=== PATIENT | female | born 1935 | race Caucasian/White ===

== ENCOUNTER 2020-09-01 14:07 | Inpatient (IN) | payer MEDICARE ==
[~2020-09-01] VITALS: Ht 157.5 cm; Wt 55.0 kg
[2020-09-01] MEDS ORDERED: NAPR1TAB25 PO (15:08)
[2020-09-01] MEDS ORDERED: ESCITALOPRAM OX10 MG PO (15:08)
[2020-09-01] MEDS ORDERED: ACET500T68 PO (15:08)
[2020-09-01] MEDS ORDERED: MELA3TAB43 PO (15:08)
[2020-09-01] MEDS ORDERED: QUET100T4 PO (15:08)
[2020-09-01 15:54] VITALS: BP 144/73
[2020-09-01] MEDS ORDERED: ACETAMINOPHEN 500 MG TABLET PO PRN (16:30)
[2020-09-01 16:37] LABS: BASO % 1 % (0-3); EOS # 0.4 x10^3/uL (0.0-0.7); EOS % 7 % (0-3); HEMATOCRIT 46.5 % (36.0-47.0); HEMOGLOBIN 15.2 g/dL (12.0-15.5); LYMPH # 1.1 x10^3/uL (1.0-4.8); LYMPH % 20 % (24-48); MEAN CORPUSCULAR HEMOGLOBIN 31 pg (25-35); MEAN CORPUSCULAR HGB CONC 33 g/dL (31-37); MEAN CORPUSCULAR VOLUME 95 fL (79-100); MONO # 0.6 x10^3/uL (0.0-1.1); MONO % 11 % (0-9); NEUT # 3.3 x10^3uL (1.8-7.7); NEUT % 61 % (31-73); PLATELET COUNT 265 x10^3/uL (140-400); RED BLOOD COUNT 4.92 x10^6/uL (3.50-5.40); WHITE BLOOD COUNT 5.4 x10^3/uL (4.0-11.0)
[2020-09-01 16:49] LABS: ALBUMIN 3.8 g/dL (3.4-5.0); ALBUMIN/GLOBULIN RATIO 0.9 (1.0-1.7); CREATININE 0.8 mg/dL (0.6-1.0); POTASSIUM 3.8 mmol/L (3.5-5.1); TOTAL BILIRUBIN 0.4 mg/dL (0.2-1.0); TOTAL PROTEIN 7.9 g/dL (6.4-8.2)
[2020-09-01 20:01] VITALS: BP 155/95
[2020-09-01] MEDS ORDERED: MELATONIN 3 MG TABLET PO SCH (21:00)
[2020-09-01] MEDS ORDERED: QUEtiapine 100 MG TABLET. PO SCH (21:00)
--- NOTE | 2020-09-01 21:59 | EKG ---
[address] [address] Test Date: 2020-09-01 Test Time: 21:51:46 Pat Name: YODIT ANDERSON Department: Room: [facility] A Gender: F Signals Analyst: : 1935 Requested By: FUNMILAYO HARP Order Number: [id number] Reading MD: Measurements Intervals [place] Rate: 74 P: 9 CT: 172 QRS: 3 QRSD: 78 T: 26 QT: 410 QTc: 456 Interpretive Statements SINUS RHYTHM ATRIAL PREMATURE COMPLEX(ES) T ABNORMALITY IN INFERIOR LEADS ABNORMAL ECG RI6.01 No previous ECG available for comparison
[2020-09-02 02:07] LABS: HEMOGLOBIN A1C 5.3 % (4.8-5.6)
--- NOTE | 2020-09-02 07:53 | HP ---
ADMIT DATE: 09/01/2020 ATTENDING PHYSICIAN: Dr. Funmilayo Harp HISTORY OF PRESENT ILLNESS: We are asked to this patient for medical clearance prior to going to the [facility] Behavior Unit. She is being evaluated for COVID-19 coronavirus. The patient is an 85-year-old female who has been living with her daughter in [place], [place]. She has become much more difficult to manage, very confused. She is in decline. She has profound dementia of late stage. She also has hyperlipidemia, chronic ulcers and venous insufficiency. PAST SURGICAL HISTORY: Includes a right breast cyst removal, vaginal hysterectomy in 2007, closed reduction of right shoulder, closed reduction of left wrist in 2019 following a fall. CURRENT MEDICATIONS: Include the following: She takes Tylenol, Celexa, melatonin, and Seroquel. ALLERGIES: She has allergies to LORAZEPAM, exact reaction is unclear. SOCIAL HISTORY: She is a nonsmoker, nondrinker currently. FAMILY HISTORY: Unfortunately is unobtainable. REVIEW OF SYSTEMS: Unfortunately unobtainable. The patient is a poorly responsive, although arousable. PHYSICAL EXAMINATION: GENERAL: When I saw her, this is a thin, cachectic elderly female who is profoundly confused. INITIAL VITAL SIGNS: Showed blood pressure 144/73 mmHg, pulse was 70 and regular, temperature 97.5 degrees Fahrenheit, oxygen saturation 96% on room air. HEENT: Head is without trauma. Pupils are reactive. Sclerae are nonicteric. Oropharynx is clear. NECK: Supple. No stridor. LUNGS: Shallow respirations. CARDIOVASCULAR: Showed regular heart tones. No gallops. ABDOMEN: Soft, no guarding. Hypoactive bowel sounds. EXTREMITIES: Showed no cyanosis or edema. There is a superficial ulcer of the left ankle. This is band dressed. SKIN: Otherwise warm and dry. PERTINENT LABORATORY STUDIES: Her hemoglobin is 15.2 g/dL with white count of 5400. Electrolytes are within normal range. Creatinine 0.8 mg percent. Transaminases were normal. Coronavirus swab is pending at this time. ASSESSMENT: 1. This 85-year-old female has profound dementia with inability to care for herself. 2. Venous stasis insufficiency. 3. Osteoporosis. 4. Hyperlipidemia. 5. Generalized debilitation. PLAN: 1. Admit to the medical floor. 2. Coronavirus swab is pending. 3. Continue minimal home meds. 4. She is a DNR per advanced directive. We will respect these wishes. FUNMILAYO HARP MD DR: SHELL/tulio JOB#: [id number] / [id number]
[2020-09-02 08:48] LABS: BACTERIA,URINE MANY /HPF (0-FEW); BILIRUBIN,URINE NEG (NEG); CLARITY,URINE HAZY; COLOR,URINE YELLOW; GLUCOSE,URINE NEG (NEG); NITRITE,URINE POS (NEG); SQUAMOUS EPITHELIAL CELL,UR FEW /LPF; UROBILINOGEN,URINE 0.2 mg/dL (0.2 mg/dL)
[2020-09-02] MEDS ORDERED: CITALOPRAM 20 MG TABLET. PO SCH (09:00)
[2020-09-02] MEDS ORDERED: FLU VACC QS 2020-21(6MOS+)/PF 0.5 ML SYRINGE. VAX IM ONE (09:00)
--- NOTE | 2020-09-02 15:04 | DS ---
DATE OF DISCHARGE: 09/02/2020 ATTENDING PHYSICIAN: Dr. Harp. FINAL DISCHARGE DIAGNOSES: 1. Dementia with behavioral issues. 2. Chronic venous ulcers. 3. Venous insufficiency. 4. Hyperlipidemia. 5. Generalized debilitation. HISTORY OF PRESENT ILLNESS: The patient is an 85-year-old female slated to go to the [facility] for behavioral issues. She was admitted to the medical floor for screening for coronavirus. PHYSICAL EXAMINATION: Please see my dictated note. PERTINENT LABORATORY AND X-RAY STUDIES: Hemoglobin slightly diminished, but not too critically low. White count was normal. Electrolytes within normal range. Coronavirus swab was negative. COURSE IN THE HOSPITAL: The patient was admitted overnight. Home meds were continued. She had swabs for coronavirus that is negative. On the second hospital day, she was sent upstairs to the [facility] Unit. Her home meds are unchanged from those at admission. She is a DNR per advance directive. She was discharged then to the [facility] Unit in a stable condition with explicit instructions and followup care. FUNMILAYO HARP MD DR: SHELL/tulio JOB#: [id number] / [id number]
== END 2020-09-02 14:55 | DRG 948 ==
LOC: 1 SOUTH 14:07
PROVIDERS: ADMIT Hospitalist; ATTEND Hospitalist
DX: R53.81 Other malaise (principal); F03.91 Unspecified dementia, unspecified severity, with behavioral disturbance; I87.8 Other specified disorders of veins; E78.5 Hyperlipidemia, unspecified; Z20.822 Contact with and (suspected) exposure to COVID-19; M81.0 Age-related osteoporosis without current pathological fracture; I87.2 Venous insufficiency (chronic) (peripheral); Z66 Do not resuscitate; Z90.710 Acquired absence of both cervix and uterus; Z88.8 Allergy status to other drugs, medicaments and biological substances
CPT/HCPCS: 36415; 80053; 81001; 82306; 82607; 83036; 83735; 84443; 85025; 85379; 86592; 87077; 87086; 87186; 93005; U0003

== ENCOUNTER 2020-09-02 14:55 | Inpatient (IN) | payer MEDICARE ==
[~2020-09-02] VITALS: Ht 157.5 cm; Wt 56.0 kg
--- NOTE | 2020-09-02 14:45 | NUR ---
Admission Note with Justification for Admission to [facility] Patient admitted to [facility] for protective oversight for emergency stabilization of acute psychiatric crisis. Pt admitted from: home with dtr- 48 hour unit Mode of arrival: wc Accompanied By: [facility] Staff Precipitating behaviors that initiated intake and admission: agitation aggression, hallucinating Description of failure of out patient attempts at stabilization in previous setting list behavior and medication trials: seroquel, lexapro, lock system on door Behaviors and assessment findings upon admission: confused. perplexed Plan: Admit for protective oversight for adjustment and stabilization of medications, behaviors and mood. Intense treatment regimen including groups, medication adjustments, therapy, consistent regimen for ADL's, self care, and sleep hygiene. Daily monitoring by Inpatient staff, Psychiatry, and Medical Physician.
[~2020-09-02 14:55] MED LIST: ACET500T68 PO; ESCITALOPRAM OX10 MG PO; MELA3TAB43 PO; NAPR1TAB25 PO; QUET100T4 PO
[2020-09-02 15:53] VITALS: BP 125/78
[2020-09-02] MEDS ORDERED: MAG HYDROX/AL HYDROX/SIMETH 30 ML ORAL.SUSP PO PRN (16:45)
[2020-09-02] MEDS ORDERED: MAGNESIUM HYDROXIDE 2,400 MG/30 ML ORAL.SUSP. PO PRN (16:45)
[2020-09-02] MEDS ORDERED: METHYL SALICYLATE/MENTHOL TOPICAL OINTMENT 57GM TUBE. TP PRN (16:45)
[2020-09-02] MEDS ORDERED: FLU VACC QS 2020-21(6MOS+)/PF 0.5 ML SYRINGE. VAX IM ONE (17:00)
[2020-09-02] MEDS: QUEtiapine 100 MG TABLET. PO SCH (19:57)
[2020-09-02] MEDS: MELATONIN 3 MG TABLET PO SCH (19:57)
--- NOTE | 2020-09-02 21:24 | PDOC ---
Exam Note: Agapito Note: Please also refer to the separate dictated note~for this date of service dictated separately.~Patient seen individually. Discussed the patient with Nursing staff reviewed the chart.~Reviewed interim history and current functioning. Reviewed vital signs,~Labs/ Radiology~and current medications noted below. Continue current treatment with the changes noted in the dictated addendum note Assessment: Vital Signs/I&O: Vital Signs Date Time Temp Pulse Resp B/P (MAP) Pulse Ox O2 Delivery O2 Flow Rate FiO2 09/02/20 15:53 97.5 84 17 125/78 (94) 96 Room Air Current Medications: Meds: Current Medications Medications (Trade) Dose Ordered Sig/Elder Route PRN Reason Start Time Stop Time Status Last Admin Dose Admin Quetiapine Fumarate (SEROquel) 100 mg HS PO 09/02/20 21:00 09/02/20 19:57 Melatonin (Melatonin) 3 mg QHS PO 09/02/20 21:00 09/02/20 19:57 I have reviewed the current psychotropics carefully including drug interactions. Risk benefit ratio favors no change other than as noted in my dictated progress note. SOHAM POLO MD Sep 02, 2020 21:24
[2020-09-03 06:21] VITALS: BP 100/67
[2020-09-03] MEDS ORDERED: FLU VACC QS 2020-21(6MOS+)/PF 0.5 ML SYRINGE. VAX IM ONE (09:00)
--- NOTE | 2020-09-03 09:00 | NUR ---
THIS NURSE CONTACTED [facility] PHARMACIST ABOUT FLU VAX PT JUST RECEIVED FIRST COVID VACCINE AND WILL GET SECOND ONE ON 09/19. PER PHARMACY WE WILL WAIT UNTIL TWO WEEKS AFTER COVID VACCINE TO GIVE FLU SHOT.
[2020-09-03] MEDS: CITALOPRAM 20 MG TABLET. PO SCH (12:26)
--- NOTE | 2020-09-03 15:09 | NUR ---
PT IS LOCATED IN DAY ROOM AT TIME OF ASSESSMENT AND MEDICATION ADMINISTRATION. PT IS COOPERATIVE AND PLESANT WITH BOTH MEDICATIONS AND ASSESSMENT. PT IS PLEASANTLY CONFUSED. WILL CONTINUE TO MONITOR.
[2020-09-03 16:08] VITALS: BP 120/76
[2020-09-03] MEDS: MELATONIN 3 MG TABLET PO SCH (19:40)
[2020-09-03] MEDS: QUEtiapine 100 MG TABLET. PO SCH (19:40)
--- NOTE | 2020-09-03 22:02 | PDOC ---
Exam Note: Agapito Note: Please also refer to the separate dictated note~for this date of service dictated separately.~Patient seen individually. Discussed the patient with Nursing staff reviewed the chart.~Reviewed interim history and current functioning. Reviewed vital signs,~Labs/ Radiology~and current medications noted below. Continue current treatment with the changes noted in the dictated addendum note Assessment: Vital Signs/I&O: Vital Signs Date Time Temp Pulse Resp B/P (MAP) Pulse Ox O2 Delivery O2 Flow Rate FiO2 09/03/20 16:08 96.2 75 18 120/76 (91) 98 09/03/20 06:21 Room Air I & O 09/02/20 09/02/20 09/03/20 14:59 22:59 06:59 Intake Total 480 ml Balance 480 ml Current Medications: Meds: Current Medications Medications (Trade) Dose Ordered Sig/Elder Route PRN Reason Start Time Stop Time Status Last Admin Dose Admin Acetaminophen (Tylenol) 1,000 mg PRN Q6HRS PRN PO pain or fever 09/02/20 16:30 Quetiapine Fumarate (SEROquel) 100 mg HS PO 09/02/20 21:00 09/03/20 19:40 Citalopram Hydrobromide (CeleXA) 20 mg DAILY PO 09/03/20 09:00 09/03/20 12:26 Melatonin (Melatonin) 3 mg QHS PO 09/02/20 21:00 09/03/20 19:40 Multi-Ingredient Ointment (Analgesic [place]) 1 shabnam PRN QID PRN TP MUSCLE PAIN 09/02/20 16:45 Al Hydroxide/Mg Hydroxide (Mylanta Plus Xs) 15 ml PRN AFTMEALHC PRN PO DYSPEPSIA 09/02/20 16:45 Magnesium Hydroxide (Milk Of Magnesia) 2,400 mg PRN QHS PRN PO CONSTIPATION 09/02/20 16:45 Influenza Virus Vaccine Quadrival (Fluzone Quad Syringe) 0.5 ml ONCE ONCE VAX IM 09/02/20 17:00 09/02/20 17:01 DC Influenza Virus Vaccine Quadrival (Fluzone Quad [id number] Syringe) 0.5 ml ONCE ONCE VAX IM 09/03/20 09:00 09/03/20 09:01 Cancel Docusate Sodium (Colace) 100 mg DAILY PO 09/04/20 09:00 Current Medications Medications (Trade) Dose Ordered Sig/Elder Route PRN Reason Start Time Stop Time Status Last Admin Dose Admin Citalopram Hydrobromide (CeleXA) 20 mg DAILY PO 09/03/20 09:00 09/03/20 12:26 I have reviewed the current psychotropics carefully including drug interactions. Risk benefit ratio favors no change other than as noted in my dictated progress note. SOHAM POLO MD Sep 03, 2020 22:02
--- NOTE | 2020-09-03 22:08 | NUR ---
Patient has been wandering in the hallways and entering peers rooms this evening. She is oriented to self only, med compliant and cooperative with assessment. Patient had a hard BM this evening, stool softener ordered to start tomorrow AM. Patient is unable to answer orientation questions. She is calm. Patient did not make any statements about visual hallucinations and did not answer when nurse asked her if she was experiencing them. She did not make any SI statements and was not agitated.
--- NOTE | 2020-09-03 23:09 | NUR ---
Patient very restless in bed, she is getting up and has been setting the bed alarm off multiple times. Patient has been redirected to bed, toileted (she urinated) and has had to be redirected back to bed several times since then. Paged Dr David and received order for PRN trazodone 50mg PRN HS for insomnia may repeat x1 and zyprexa/zydis PRN Q2hrs for psychosis/agitation with maximum daily dose 7.5 mg/24 hrs. Patient is very disorganized and does not seem to understand that she needs to stay in bed. She is wide awake. Patient walked to [facility] by staff and is now sitting in a chair in the hallway.
[2020-09-03] MEDS: traZODone 50 MG TABLET. PO PRN (23:57)
--- NOTE | 2020-09-03 23:58 | NUR ---
Patient continues to be restless, she is fiddling with the bedding and sitting up in the bed in the quiet room. PRN trazodone given for insomnia and PRN zyprexa given for psychosis/restlessness. Will continue to monitor.
[2020-09-04] MEDS: traZODone 50 MG TABLET. PO PRN ×2 (01:01→22:27)
--- NOTE | 2020-09-04 01:02 | NUR ---
Patient is crawling around on the floor in the quiet room and attempting to climb up on the window ledge. She has not slept, 2nd PRN trazodone given for insomnia. Will continue to monitor
--- NOTE | 2020-09-04 05:30 | NUR ---
PRN medications were not effective. Patient was up and down most of the night and finally laid down between [id number] but did not sleep. Patient was in quiet room/west hallway all night.
[2020-09-04 06:38] VITALS: BP 161/75
--- NOTE | 2020-09-04 09:43 | HP ---
ADMIT DATE: 09/03/2020 PSYCHIATRIC ADMISSION EVALUATION/HISTORY This note covers elements not covered in my initial note, 09/03/2020. IDENTIFYING DATA: The patient is an 85-year-old female with significant progressive dementia, referred from her fpc on account of making statements, "It would be easier if I was not here anymore." She was having marked insomnia, seeing little boys and talks to her spouse. She initially thinks that TV is talking about her and is verbally agitated with her daughter. She has got out of the house by herself. Behaviors deemed dangerous, unmanageable resulting in this referral. She was initially on [facility] floor; once COVID negative status was confirmed she transitioned to us on 09/02/2020. Previously discussed with Staci Campa and nursing staff at length. CHIEF COMPLAINT: "No." The patient is extremely confused, disorganized, walking up and down the hallway. Initially, I found her in the room of another patient and later she was totally oblivious of where she was. HISTORY OF PRESENT ILLNESS: The patient has a history of dementia, Alzheimer's, vascular type. She has been residing at the fpc recently getting more psychotic, paranoid as noted above. She has been agitated, having sleep and appetite changes. No active suicidal or homicidal ideation. PAST MEDICAL HISTORY: Urine culture is pending. Positive history of cerebrovascular disease, ulcer to left ankle, hyperlipidemia, history of hematuria. ALLERGIES: ATIVAN, BENADRYL. CODE STATUS: DNR. CURRENT PSYCHOTROPICS: Seroquel 100 mg at bedtime, Lexapro 10 mg a day, melatonin 3 mg at bedtime. FAMILY HISTORY: Noncontributory. SOCIAL HISTORY: No history of alcohol, drug abuse, physical, sexual or elder abuse. She is not known to be a perpetrator. REACTION TO HOSPITALIZATION: The patient oblivious of this. ASSETS: Supportive, living at the nursing homes. MENTAL STATUS EXAMINATION: The patient is oriented to herself. Insight, judgment, recent and remote memory, attention, concentration, fund of knowledge poor, consistent with her diagnoses. IMPRESSION: Major neurocognitive disorder, Alzheimer, vascular with delusion, depression, behavioral disturbance; anxiety disorder, unspecified; impulse control disorder, unspecified. Rest as above. PLAN: Admit to Geropsychiatry Unit at [facility]. I will see the patient daily individually from a psychiatric standpoint. Medical followup with Dr. Estrella/Dr. Vincent. Continue the patient on her current psychotropics. Observe baseline, adjust further as clinically indicated. MAN Shahana POLO MD DR: LUCAS/tulio JOB#: [id number] / [id number]
[2020-09-04] MEDS: CITALOPRAM 20 MG TABLET. PO SCH (09:58)
[2020-09-04] MEDS: DOCUSATE SODIUM 100 MG CAPSULE PO SCH (09:58)
--- NOTE | 2020-09-04 12:54 | NUR ---
WEEKLY ACTIVITY THERAPY NOTE Date of Admission: 09/02/20 Date of AT Assessment: TBD Precipitating behaviors that initiated intake and admission:agitation aggression, hallucinating Goal aimed: TBD Initial Goal: TBD Weekly progress towards goal: NA Group participation level: NA Weekly highlights: arrived on [facility] Behaviors observed: Plan: meet/asses pt Beneficial adaptations:
--- NOTE | 2020-09-04 13:41 | NUR ---
Influenza vaccination: per pharmacy/CDC recommendations flu vaccine is contraindicated within 2 weeks of COVID vaccine. Patient received COVID vaccine 1st dose 08/22 and is scheduled for 2nd dose 09/19. This does not allow for a flu vaccine administration until 10/03 and at that time we will be outside the flu season vaccine window.
--- NOTE | 2020-09-04 14:25 | NUR ---
Patient slept in this morning until after 09:00. She was assisted to her feet from the quiet room mattress and escorted to the day room. She is disorganized, calm, and pleasantly confused. Patient has been wandering at times, otherwise staying in the day room. Will continue to monitor.
--- NOTE | 2020-09-04 15:33 | NUR ---
SW attempted to contacted pt dtr/Cristal HILLS and had to leave a message asking for a returned call when possible. ALEKSANDAR will try back at a later time.
[2020-09-04 15:44] VITALS: BP 122/77
--- NOTE | 2020-09-04 17:19 | NUR ---
PSYCHOSOCIAL ASSESSMENT ADMISSION DATE: 09/02/20 CONTACT INFORMATION: DPOA/Guardian Contact Name: Cristal Stein Contact Address: [address] [place] [id number] Contact Phone #: ETHNIC ORIGIN: REASONS FOR ADMISSION: Agitated Delusions Depressed Hallucinations Sig. Change Sleep Other ADDITIONAL ADMISSION COMMENTS: According to the intake, pt stated that it would be easier if she wasn't here; tries to get out of the windows, kicked daughter, seeing little boys, talking to spouse, thinks the tv is talking about her, verbally agitated with her dtr. REASON FOR ADMISSION IN PATIENT/FAMILY'S OWN WORDS: She is not sleeping and is beginning to have more behaviors PATIENT/FAMILY EXPECTATIONS FOR ADMISSION: Medication LIVING SITUATION: Patient lives with: Child/children Other living arrangements: Adult daughter lives with her Contact Name: Cristal Stein Contact Address: [address] [place] [id number] Contact Phone #: Contact Fax #: N/A FAMILY RELATIONS: Marital Status: # of Marriages: 1 # of Children: [address] [facility] Family Support: Concerned Cooperative Involved in DC Planning Additional Comments r/t Family: Pt was for almost 57 years to her Nael Guzman. Together they had 3 daughters: Monique Engle and Cristal. Pt in February 2016. SIGNIFICANT PSYCHIATRIC/MEDICAL HISTORY: Psychiatric/Treatment History: This is pt [facility] psychiatric stay [facility]. Pt does carry a psychiatric dx of Dementia given by neurologist Dr. Warren. Pertinent Family History: Pt Mother (passed), oldest sister (passed), oldest brother (passed) and younger brother (living) were diagnosed with Dementia. Pt father had Polio. HISTORICAL DATA: Childhood Environment: Rigid Stressful Other-see below Childhood Environment Additional Comments: Pt was born in [place] as a "wiley's kid". Pt is 1 of 15 children. Pt father's first had 2 children and when giving to her 2nd child. Pt remarried and then had 13 more children. 5 of pt siblings have . Pt father was militant with the children and "used them" to help around the farm since he had Polio. 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 service: [employer] for 3 years Rastafari background: Pt is not overly yarsani but does have a caregiver who likes to pray with her. Pt dtr reports she hasn't been to quaker in years. Sexual orientation: Heterosexual Educational Level: Pt did graduate high school unlike her siblings. Past/Present Interests/Hobbies: Quilting Sewing Used to love to cook Folding clothes Sweeping floors [place] ([place]) Financial support/resources: Social Security Monthly income: $4000.00 Person handling finances: Pt dtr handles all finances Do you have a history of legal problems: N Cultural considerations: None SOCIAL RELATIONSHIPS-CURRENT/PAST: Psychiatrist: None PCP: Dr. Garcia Counselor/Therapist: None Veterans[employer] [facility]: None Support Group: Home Instead Sex Crimes Detective/Slipcover Cutter: None Other relationships: Dr. Warren STRENGTHS & WEAKNESSES: Patient's strengths: Good family support Financial support Ambulatory Approachable Other patient strengths: Patient's weaknesses: Impulsive Verbally Aggressive Other patient weaknesses: PRELIMINARY PLAN OF TREATMENT: Preliminary plan: Dec. Symp. Depression Medication Stabilization Prevent Deterioration Other preliminary treatment comments: DISCHARGE PLANNING: Discharge planning/disposition: Current Living Arrange. Additional discharge needs identified: Potential psychiatric services ADDITIONAL INFORMATION: Other Pertinent Data: completed PSA with pt dtr, Cristal. Cristal reports that a family friend recommended [facility] because her mother was here and "we did wonders". They initially attempted to have the neurologist give pt sleep aides but he did not feel comfortable giving her anything. Cristal reports that pt would not sleep for nights and is concerned that is not helping her behaviors. Pt UA came back from the hospital and they will plan to have those results faxed over. Pt will plan to return home once stable with continued Private Duty care.
[2020-09-04] MEDS: QUEtiapine 100 MG TABLET. PO SCH (19:45)
[2020-09-04] MEDS: MELATONIN 3 MG TABLET PO SCH (19:46)
[2020-09-04] MEDS: MIRTAZAPINE 7.5 MG TABLET. PO SCH (19:46)
--- NOTE | 2020-09-04 21:37 | NUR ---
Patient was cooperative in the shower. She took medications whole with water. Patient wandering in day room and hallways. Patient is not tired and has been directed to west hallway so she does not disturb others that are sleeping.
--- NOTE | 2020-09-04 21:50 | PDOC ---
Exam Note: Agapito Note: Please also refer to the separate dictated note~for this date of service dictated separately.~Patient seen individually. Discussed the patient with Nursing staff reviewed the chart.~Reviewed interim history and current functioning. Reviewed vital signs,~Labs/ Radiology~and current medications noted below. Continue current treatment with the changes noted in the dictated addendum note Assessment: Vital Signs/I&O: Vital Signs Date Time Temp Pulse Resp B/P (MAP) Pulse Ox O2 Delivery O2 Flow Rate FiO2 09/04/20 15:44 97.4 84 17 122/77 (92) 93 09/03/20 06:21 Room Air I & O 09/03/20 09/03/20 09/04/20 15:00 23:00 07:00 Intake Total 200 ml 480 ml Balance 200 ml 480 ml Current Medications: Meds: Current Medications Medications (Trade) Dose Ordered Sig/Elder Route PRN Reason Start Time Stop Time Status Last Admin Dose Admin Docusate Sodium (Colace) 100 mg DAILY PO 09/04/20 09:00 09/04/20 09:58 Trazodone HCl (Desyrel) 50 mg PRN QHS PRN PO INSOMNIA, MAY REPEAT X1 09/03/20 23:15 09/04/20 01:01 Olanzapine (ZyPREXA ZYDIS) 2.5 mg PRN Q2HRS PRN PO PSYCHOSIS/AGITATION 09/03/20 23:15 09/04/20 17:11 Mirtazapine (Remeron) 7.5 mg QHS PO 09/04/20 21:00 09/04/20 19:46 I have reviewed the current psychotropics carefully including drug interactions. Risk benefit ratio favors no change other than as noted in my dictated progress note. Diagnosis: Problems: (1) Major neurocognitive disorder (2) Dementia in Alzheimer's disease with delusions (3) Dementia in Alzheimer's disease with depression (4) Dementia of the Alzheimer's type with early onset with behavioral disturbance (5) Dementia, vascular, with delusions (6) Dementia, vascular, with depression (7) Anxiety disorder, unspecified (8) Impulse control disorder, unspecified SOHAM POLO MD Sep 04, 2020 21:50
--- NOTE | 2020-09-04 22:30 | NUR ---
Patient very restless in bed. Nurse has been sitting in patient room reminding her to lay down and sleep. PRN trazodone given per order for insomnia at 2230 and it was not effective. Patient continued to be restless, moving legs around and "reaching" with arms as if to grab something. At 2315 patient remained awake. PRN tylenol given for pain per order and PRN zyprexa given for psychosis/restlessness per order. Patient unable to name where pain is or describe pain, possibly hip pain as she was rubbing her left hip. Will continue to monitor.
[2020-09-04] MEDS: ACETAMINOPHEN 500 MG TABLET PO PRN (23:16)
--- NOTE | 2020-09-05 00:15 | NUR ---
Patient is sleeping at this time. PRNs effective.
--- NOTE | 2020-09-05 00:48 | NUR ---
Patient awake and trying to get out of bed. Bed alarm is going off. Patient assisted to [facility] and is laying on the mattress. Will continue to monitor.
[2020-09-05 05:51] VITALS: BP 137/79
--- NOTE | 2020-09-05 06:20 | NUR ---
Patient Lipid profile lab draw postponed to 1000 as patient has only had 4 hours of sleep.
--- NOTE | 2020-09-05 09:06 | PDOC ---
Exam Note: Agapito Note: This note is a late entry for 09/04/2020 covers elements not covered in my initial note. Subjective: The patient was reviewed in the morning of 09/04/2020 for a treatment team meeting with Staci Melgoza, Quiana Winston and Judy (social work specialist), Dori, activity therapy and Nael EDUARDO, discussed and reviewed the chart. The patient just slept 1/2 hours previous night. She remains confused, seems to have a tremor. Received trazodone x2 and Zyprexa at night and still did not sleep. We will add Remeron 7.5 mg h.s. I met with her again in the evening with Nale EDUARDO. She received Zyprexa p.r.n. around 5 p.m. due to agitation. Review of Systems: No CV, , pulmonary, eye, ENT system symptoms on review. Reliability poor. Mental Status Exam: The patient is oriented to herself. Insight and judgement, recent and remote memory, attention and concentration, fund of knowledge is poor consistent with her diagnoses. Laboratory Data: Reviewed. Impression: Major neurocognitive disorder Alzheimer vascular with delusion, depression, behavioral disturbance. Anxiety disorder unspecified. Impulse control disorder unspecified. Plan: Continue current psychotropics. Add Remeron as above. Adjust further as clinically indicated. Assessment: Vital Signs/I&O: Vital Signs Date Time Temp Pulse Resp B/P (MAP) Pulse Ox O2 Delivery O2 Flow Rate FiO2 09/05/20 05:51 97.4 56 20 137/79 (98) 92 09/03/20 06:21 Room Air I & O 09/04/20 09/04/20 09/05/20 15:00 23:00 07:00 Intake Total 840 ml 440 ml Balance 840 ml 440 ml Current Medications: Meds: Current Medications Medications (Trade) Dose Ordered Sig/Elder Route PRN Reason Start Time Stop Time Status Last Admin Dose Admin Mirtazapine (Remeron) 7.5 mg QHS PO 09/04/20 21:00 09/04/20 19:46 I have reviewed the current psychotropics carefully including drug interactions. Risk benefit ratio favors no change other than as noted in my dictated progress note. Diagnosis: Problems: (1) Impulse control disorder, unspecified (2) Anxiety disorder, unspecified (3) Dementia, vascular, with depression (4) Dementia, vascular, with delusions (5) Dementia in Alzheimer's disease with depression (6) Dementia in Alzheimer's disease with delusions (7) Dementia of the Alzheimer's type with early onset with behavioral disturbance (8) Major neurocognitive disorder SOHAM POLO MD Sep 05, 2020 09:06
[2020-09-05] MEDS: DOCUSATE SODIUM 100 MG CAPSULE PO SCH (12:21)
[2020-09-05] MEDS: CEPHALEXIN 250 MG CAPSULE PO SCH ×3 (12:21→19:53)
[2020-09-05] MEDS: CITALOPRAM 20 MG TABLET. PO SCH (12:21)
--- NOTE | 2020-09-05 13:25 | NUR ---
ACTIVITY THERAPY ASSESSMENT completed based on notes, observation and interview. Pt was standing in the day room and willing to answer questions. Pt said she did not like to do anything. When given this or that questions by AT pt said that she liked watching TV, reading, music. Per notes pt likes cooking, sewing and quilting. AT asked pt about her family and she said she was and unsure if she had three or four children. Pt said that she does not have good contact with her family. Per notes pt lives with her daughter. Pt is unable to answer orientation questions. Pt reports no stress at this time. Initial goal aimed to increase time management and sensory stimulation. Pt will participate in at least three individual or group Activity Therapy sessions before discharge.
--- NOTE | 2020-09-05 15:52 | TX PLAN ---
Interdisciplinary Tx Plan Admission Information Sep 02, 2020 at 14:55 Legal Status (on Admission): Voluntary DPOA/Guardian Name: Cristal Stein Contact Other Contact Name: Cristal Stein Other Contact Verified Code Status: DNR Allergies: Coded Allergies: diphenhydramine (Verified Allergy, Unknown, 09/02/20) lorazepam (Verified Adverse Reaction, Mild, Increased agitation , 09/01/20) Diagnoses Primary Diagnosis: Major Neurocognitive D/O, vascular Alzheimer's with delusions, depression, and behavioral disturbance. Reasons for Admission: Delusions, Agitated, Depressed, Sig. Change Sleep, H allucinations, Other Problem in Patient's Words: She is not sleeping and is beginning to have more behaviors Additional Admission Comments: According to the intake, pt stated that it would be easier if she wasn't here; tries to get out of the windows, kicked daughter, seeing little boys, talking to spouse, thinks the tv is talking about her, verbally agitated with her dtr. Problems Active Problems: delusional visual hallucinations agitated depressed Inactive Problems: medication management Pt Strengths/Limitations Ability for [place]: Poor Cognitive Functioning/Ability: Poor Communication Skills/Ability: Fair Financial Resources: Fair Insight/Judgement: Poor Intellectual Ability: Fair Physical Health: Fair Social Skills: Fair Stability in Family: Good Stability in School/Work: Poor Verbal Skills: Fair Discharge Criteria Discharge Criteria: Adequate arrangements @DC, Improved behavior, Improved mood/thought Preliminary Discharge Plan Preliminary DC Plan: Current Living Arrange. Special Precautions Fall Risk: Low Initial D/C Plan Identified Discharge Needs: Potential psychiatric services Identified Problems/Hx/Goals Objectives/Short-Term Goals Short Term Goals: Dec. Symp. Depression, Medication Stabilization, Prevent Deterioration Short Term Goals in Patient's: N/A Interventions/Frequency Staff Interventions/Frequency&: Psychiatrist to assess pt at least 3x per week for medication management. Social Work to assess pt at least 2x per week for identification of barriers of care and discharge planning. Nursing to assess medication effects, behavior management and completion of 15 minute checks. 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 Education: Pt did graduate high school unlike her siblings. Community Follow-up Primary Care Physician Neurologist Treatment Plan Explained Patient/Rubber Process Hand had this treatment plan explained to him/her as indicated by the signature below and has been given the opportunity to ask questions and make suggestions: Date: Patient/Rubber Process Hand Signature: Patient/Rubber Process Hand Decline: No (Pt dtr is very active in pt care.) OPAL ROSE Sep 05, 2020 15:52
[2020-09-05 16:22] VITALS: BP 107/53
--- NOTE | 2020-09-05 17:56 | NUR ---
Patient slept in this morning until after 11:00. She is disorganized, calm, and pleasantly confused. Patient has been wandering and exit seeking at times, stating she had to get home to her daughter.. Will continue to monitor and report to oncoming shift.
[2020-09-05] MEDS: MELATONIN 3 MG TABLET PO SCH (19:53)
[2020-09-05] MEDS: ACETAMINOPHEN 500 MG TABLET PO PRN (19:53)
[2020-09-05] MEDS: QUEtiapine 100 MG TABLET. PO SCH (19:53)
[2020-09-05] MEDS: MIRTAZAPINE 7.5 MG TABLET. PO SCH (19:53)
[2020-09-05] MEDS: LACTOBACILLUS RHAMNOSUS GG 1 CAPSULE. PO SCH (19:54)
--- NOTE | 2020-09-05 19:57 | NUR ---
Given PRN tylenol for hip pain.
--- NOTE | 2020-09-05 21:57 | PDOC ---
Exam Note: Agapito Note: Please also refer to the separate dictated note~for this date of service dictated separately.~Patient seen individually. Discussed the patient with Nursing staff reviewed the chart.~Reviewed interim history and current functioning. Reviewed vital signs,~Labs/ Radiology~and current medications noted below. Continue current treatment with the changes noted in the dictated addendum note Assessment: Vital Signs/I&O: Vital Signs Date Time Temp Pulse Resp B/P (MAP) Pulse Ox O2 Delivery O2 Flow Rate FiO2 09/05/20 16:22 97.1 89 20 107/53 (71) 92 09/03/20 06:21 Room Air I & O 09/04/20 09/04/20 09/05/20 15:00 23:00 07:00 Intake Total 840 ml 440 ml Balance 840 ml 440 ml Current Medications: Meds: Current Medications Medications (Trade) Dose Ordered Sig/Elder Route PRN Reason Start Time Stop Time Status Last Admin Dose Admin Cephalexin HCl (Keflex) 250 mg TID PO 09/05/20 09:45 09/09/20 09:44 09/05/20 19:53 Lactobacillus Rhamnosus (Culturelle) 1 cap BID PO 09/05/20 21:00 09/05/20 19:54 I have reviewed the current psychotropics carefully including drug interactions. Risk benefit ratio favors no change other than as noted in my dictated progress note. Diagnosis: Problems: (1) Impulse control disorder, unspecified (2) Anxiety disorder, unspecified (3) Dementia, vascular, with depression (4) Dementia, vascular, with delusions (5) Dementia in Alzheimer's disease with depression (6) Dementia in Alzheimer's disease with delusions (7) Dementia of the Alzheimer's type with early onset with behavioral disturbance (8) Major neurocognitive disorder SOHAM POLO MD Sep 05, 2020 21:57
--- NOTE | 2020-09-05 23:00 | NUR ---
Patient was more social with peers tonight. She was observed walking in the hallway with a female peer and then sitting on the couch socializing in a disorganized manner. Nurse gave patient PRN Tylenol before bed and she looked and acted more comfortable. Patient went to bed and fell asleep almost immediately, she was not restless like on the two previous nights. Will pass on in report to check if we can get tylenol scheduled at HS. Patient made no SI comments and was calm, not agitated.
[2020-09-06 06:09] VITALS: BP 150/98
--- NOTE | 2020-09-06 08:46 | PDOC ---
Exam Note: Agapito Note: This note is a late entry for 09/05/2020 covers elements not covered in my initial note. Subjective: The patient was seen individually in the evening of 09/05/2020 with Nael EDUARDO, discussed and reviewed the chart. The patient just slept 4-1/2 hours previous night but then slept in, in the morning for another 4 hours. She remains somewhat restless, complains of hip pain, somewhat exit seeking, anxious. Review of Systems: No CV, , pulmonary, eye, ENT system symptoms on review. Mental Status Exam: The patient is oriented to herself. She is pleasant, smili ng as I met with her, responded to her name as I interacted with her in the evening. Insight and judgement, recent and remote memory, attention and concentration, fund of knowledge is poor consistent with her diagnoses. Laboratory Data: Reviewed. Impression: Major neurocognitive disorder Alzheimer vascular with delusion, depression, behavioral disturbance. Anxiety disorder unspecified. Impulse control disorder unspecified. Plan: No change from initial note but we will change her Celexa to Zoloft 50 mg a day. Maintain melatonin, trazodone, Seroquel along with Zyprexa p.r.n. and Remeron 7.5 mg h.s. Assessment: Vital Signs/I&O: Vital Signs Date Time Temp Pulse Resp B/P (MAP) Pulse Ox O2 Delivery O2 Flow Rate FiO2 09/06/20 06:09 98.7 65 16 150/98 (115) 95 09/03/20 06:21 Room Air I & O 09/05/20 09/05/20 09/06/20 15:00 23:00 07:00 Intake Total 480 ml 320 ml Balance 480 ml 320 ml Current Medications: Meds: Current Medications Medications (Trade) Dose Ordered Sig/Elder Route PRN Reason Start Time Stop Time Status Last Admin Dose Admin Acetaminophen (Tylenol) 1,000 mg PRN Q6HRS PRN PO pain or fever 09/02/20 16:30 09/05/20 19:53 Quetiapine Fumarate (SEROquel) 100 mg HS PO 09/02/20 21:00 09/05/20 19:53 Citalopram Hydrobromide (CeleXA) 20 mg DAILY PO 09/03/20 09:00 09/05/20 18:00 DC 09/05/20 12:21 Melatonin (Melatonin) 3 mg QHS PO 09/02/20 21:00 09/05/20 19:53 Multi-Ingredient Ointment (Analgesic [place]) 1 shabnam PRN QID PRN TP MUSCLE PAIN 09/02/20 16:45 Al Hydroxide/Mg Hydroxide (Mylanta Plus Xs) 15 ml PRN AFTMEALHC PRN PO DYSPEPSIA 09/02/20 16:45 Magnesium Hydroxide (Milk Of Magnesia) 2,400 mg PRN QHS PRN PO CONSTIPATION 09/02/20 16:45 Influenza Virus Vaccine Quadrival (Fluzone Quad Syringe) 0.5 ml ONCE ONCE VAX IM 09/02/20 17:00 09/02/20 17:01 DC Influenza Virus Vaccine Quadrival (Fluzone Quad Syringe) 0.5 ml ONCE ONCE VAX IM 09/03/20 09:00 09/03/20 09:01 Cancel Docusate Sodium (Colace) 100 mg DAILY PO 09/04/20 09:00 09/05/20 12:21 Trazodone HCl (Desyrel) 50 mg PRN QHS PRN PO INSOMNIA, MAY REPEAT X1 09/03/20 23:15 09/04/20 22:27 Olanzapine (ZyPREXA ZYDIS) 2.5 mg PRN Q2HRS PRN PO PSYCHOSIS/AGITATION 09/03/20 23:15 09/04/20 23:16 Mirtazapine (Remeron) 7.5 mg QHS PO 09/04/20 21:00 09/05/20 19:53 Cephalexin HCl (Keflex) 250 mg TID PO 09/05/20 09:45 09/09/20 09:44 09/05/20 19:53 Lactobacillus Rhamnosus (Culturelle) 1 cap BID PO 09/05/20 21:00 09/05/20 19:54 Sertraline HCl (Zoloft) 50 mg DAILY PO 09/06/20 09:00 Current Medications Medications (Trade) Dose Ordered Sig/Eldre Route PRN Reason Start Time Stop Time Status Last Admin Dose Admin Cephalexin HCl (Keflex) 250 mg TID PO 09/05/20 09:45 09/09/20 09:44 09/05/20 19:53 Lactobacillus Rhamnosus (Culturelle) 1 cap BID PO 09/05/20 21:00 09/05/20 19:54 I have reviewed the current psychotropics carefully including drug interactions. Risk benefit ratio favors no change other than as noted in my dictated progress note. Diagnosis: Problems: (1) Impulse control disorder, unspecified (2) Anxiety disorder, unspecified (3) Dementia, vascular, with depression (4) Dementia, vascular, with delusions (5) Dementia in Alzheimer's disease with depression (6) Dementia in Alzheimer's disease with delusions (7) Dementia of the Alzheimer's type with early onset with behavioral disturbance (8) Major neurocognitive disorder SOHAM POLO MD Sep 06, 2020 08:46
[2020-09-06] MEDS: LACTOBACILLUS RHAMNOSUS GG 1 CAPSULE. PO SCH ×2 (09:45→20:13)
[2020-09-06] MEDS: DOCUSATE SODIUM 100 MG CAPSULE PO SCH (09:45)
[2020-09-06] MEDS: CEPHALEXIN 250 MG CAPSULE PO SCH ×3 (09:45→20:13)
[2020-09-06] MEDS: SERTRALINE 50 MG TABLET. PO SCH (09:45)
--- NOTE | 2020-09-06 15:52 | NUR ---
Wound Care Wound care consult for ankle wound. Pt has psoriasis rash to left posterior ankle. No open wounds noted. Lotion applied. WC will sign off at this time. Please reconsult if new wounds develop.
[2020-09-06 16:07] VITALS: BP 161/80
--- NOTE | 2020-09-06 18:28 | NUR ---
Patient slept in this morning until after 09:30. She is disorganized, calm, and pleasantly confused. Patient has been wandering and exit seeking at times, generally social with peers. Will continue to monitor and report to oncoming shift.
[2020-09-06] MEDS: traZODone 50 MG TABLET. PO PRN (20:13)
[2020-09-06] MEDS: MELATONIN 3 MG TABLET PO SCH (20:13)
[2020-09-06] MEDS: MIRTAZAPINE 7.5 MG TABLET. PO SCH (20:13)
[2020-09-06] MEDS: ACETAMINOPHEN 500 MG TABLET PO SCH (20:13)
[2020-09-06] MEDS: diphenhydrAMINE HCL 25 MG CAPSULE PO SCH (20:13)
[2020-09-06] MEDS: QUEtiapine 100 MG TABLET. PO SCH (20:14)
--- NOTE | 2020-09-06 21:53 | PDOC ---
Exam Note: Agapito Note: Please also refer to the separate dictated note~for this date of service dictated separately.~Patient seen individually. Discussed the patient with Nursing staff reviewed the chart.~Reviewed interim history and current functioning. Reviewed vital signs,~Labs/ Radiology~and current medications noted below. Continue current treatment with the changes noted in the dictated addendum note Assessment: Vital Signs/I&O: Vital Signs Date Time Temp Pulse Resp B/P (MAP) Pulse Ox O2 Delivery O2 Flow Rate FiO2 09/06/20 16:07 97.5 77 16 161/80 (107) 96 09/03/20 06:21 Room Air I & O 09/05/20 09/05/20 09/06/20 14:59 22:59 06:59 Intake Total 480 ml 320 ml Balance 480 ml 320 ml Current Medications: Meds: Current Medications Medications (Trade) Dose Ordered Sig/Elder Route PRN Reason Start Time Stop Time Status Last Admin Dose Admin Acetaminophen (Tylenol) 1,000 mg PRN Q6HRS PRN PO pain or fever 09/02/20 16:30 09/05/20 19:53 Quetiapine Fumarate (SEROquel) 100 mg HS PO 09/02/20 21:00 09/06/20 20:14 Citalopram Hydrobromide (CeleXA) 20 mg DAILY PO 09/03/20 09:00 09/05/20 18:00 DC 09/05/20 12:21 Melatonin (Melatonin) 3 mg QHS PO 09/02/20 21:00 09/06/20 20:13 Multi-Ingredient Ointment (Analgesic [place]) 1 shabnam PRN QID PRN TP MUSCLE PAIN 09/02/20 16:45 Al Hydroxide/Mg Hydroxide (Mylanta Plus Xs) 15 ml PRN AFTMEALHC PRN PO DYSPEPSIA 09/02/20 16:45 Magnesium Hydroxide (Milk Of Magnesia) 2,400 mg PRN QHS PRN PO CONSTIPATION 09/02/20 16:45 Influenza Virus Vaccine Quadrival (Fluzone Quad Syringe) 0.5 ml ONCE ONCE VAX IM 09/02/20 17:00 09/02/20 17:01 DC Influenza Virus Vaccine Quadrival (Fluzone Quad Syringe) 0.5 ml ONCE ONCE VAX IM 09/03/20 09:00 09/03/20 09:01 Cancel Docusate Sodium (Colace) 100 mg DAILY PO 09/04/20 09:00 09/06/20 09:45 Trazodone HCl (Desyrel) 50 mg PRN QHS PRN PO INSOMNIA, MAY REPEAT X1 09/03/20 23:15 09/06/20 20:13 Olanzapine (ZyPREXA ZYDIS) 2.5 mg PRN Q2HRS PRN PO PSYCHOSIS/AGITATION 09/03/20 23:15 09/04/20 23:16 Mirtazapine (Remeron) 7.5 mg QHS PO 09/04/20 21:00 09/06/20 20:13 Cephalexin HCl (Keflex) 250 mg TID PO 09/05/20 09:45 09/09/20 09:44 09/06/20 20:13 Lactobacillus Rhamnosus (Culturelle) 1 cap BID PO 09/05/20 21:00 09/06/20 20:13 Sertraline HCl (Zoloft) 50 mg DAILY PO 09/06/20 09:00 09/08/20 23:50 09/06/20 09:45 Acetaminophen (Tylenol) 500 mg QHS PO 09/06/20 21:00 09/06/20 20:13 Diphenhydramine HCl (Benadryl) 25 mg QHS PO 09/06/20 21:00 09/06/20 20:13 Sertraline HCl (Zoloft) 75 mg DAILY PO 09/09/20 09:00 Current Medications Medications (Trade) Dose Ordered Sig/Elder Route PRN Reason Start Time Stop Time Status Last Admin Dose Admin Sertraline HCl (Zoloft) 50 mg DAILY PO 09/06/20 09:00 09/08/20 23:50 09/06/20 09:45 Acetaminophen (Tylenol) 500 mg QHS PO 09/06/20 21:00 09/06/20 20:13 Diphenhydramine HCl (Benadryl) 25 mg QHS PO 09/06/20 21:00 09/06/20 20:13 I have reviewed the current psychotropics carefully including drug interactions. Risk benefit ratio favors no change other than as noted in my dictated progress note. Diagnosis: Problems: (1) Impulse control disorder, unspecified (2) Anxiety disorder, unspecified (3) Dementia, vascular, with depression (4) Dementia, vascular, with delusions (5) Dementia in Alzheimer's disease with depression (6) Dementia in Alzheimer's disease with delusions (7) Dementia of the Alzheimer's type with early onset with behavioral disturbance (8) Major neurocognitive disorder SOHAM POLO MD Sep 06, 2020 21:53
--- NOTE | 2020-09-06 22:44 | NUR ---
Nursing Note Pt wanders confused, rambling speech, takes po meds well calm and cooperative. Denies complaints. Wanders around the unit talking to herself.
[2020-09-07 05:41] VITALS: BP 154/80
[2020-09-07 06:48] LABS: BASO % 1 % (0-3); EOS # 0.3 x10^3/uL (0.0-0.7); EOS % 9 % (0-3); HEMATOCRIT 40.2 % (36.0-47.0); HEMOGLOBIN 13.2 g/dL (12.0-15.5); LYMPH # 1.2 x10^3/uL (1.0-4.8); LYMPH % 31 % (24-48); MEAN CORPUSCULAR HEMOGLOBIN 31 pg (25-35); MEAN CORPUSCULAR HGB CONC 33 g/dL (31-37); MEAN CORPUSCULAR VOLUME 94 fL (79-100); MONO # 0.6 x10^3/uL (0.0-1.1); MONO % 14 % (0-9); NEUT # 1.8 x10^3uL (1.8-7.7); NEUT % 46 % (31-73); PLATELET COUNT 208 x10^3/uL (140-400); RED BLOOD COUNT 4.27 x10^6/uL (3.50-5.40); RED CELL DISTRIBUTION WIDTH 13.7 % (11.5-14.5)
[2020-09-07 06:58] LABS: ALBUMIN 2.9 g/dL (3.4-5.0); ALBUMIN/GLOBULIN RATIO 0.9 (1.0-1.7); CALCIUM 8.6 mg/dL (8.5-10.1); CREATININE 0.8 mg/dL (0.6-1.0); POTASSIUM 3.5 mmol/L (3.5-5.1); TOTAL BILIRUBIN 0.3 mg/dL (0.2-1.0); TOTAL PROTEIN 6.3 g/dL (6.4-8.2)
[2020-09-07] MEDS: SERTRALINE 50 MG TABLET. PO SCH (08:06)
[2020-09-07] MEDS: LACTOBACILLUS RHAMNOSUS GG 1 CAPSULE. PO SCH ×2 (08:06→19:23)
[2020-09-07] MEDS: CEPHALEXIN 250 MG CAPSULE PO SCH ×3 (08:06→19:24)
[2020-09-07] MEDS: DOCUSATE SODIUM 100 MG CAPSULE PO SCH (08:06)
--- NOTE | 2020-09-07 13:22 | NUR ---
Pt pleasantly confused this shift, disorganized, withdrawn and quiet. Her interactions with patients and staff have been appropriate thus far. She is complaint with her medications and takes them whole. She is absent of SI/HI behaviors and has no complaints or concerns at this time. Plan of care continues, will pass on to next shift.
[2020-09-07 15:38] VITALS: BP 135/64
[2020-09-07] MEDS: ACETAMINOPHEN 500 MG TABLET PO SCH (19:23)
[2020-09-07] MEDS: MELATONIN 3 MG TABLET PO SCH (19:23)
[2020-09-07] MEDS: MIRTAZAPINE 7.5 MG TABLET. PO SCH (19:23)
[2020-09-07] MEDS: QUEtiapine 100 MG TABLET. PO SCH (19:24)
[2020-09-07] MEDS: diphenhydrAMINE HCL 25 MG CAPSULE PO SCH (19:24)
[2020-09-07] MEDS: traZODone 50 MG TABLET. PO PRN (19:44)
--- NOTE | 2020-09-07 21:31 | NUR ---
Nursing Note Pt wandering the unit, confused smiles on approach, med compliant in pudding, had chewed her meds previously and was not sure how to drink from a cup and straw.
--- NOTE | 2020-09-07 21:53 | PDOC ---
Exam Note: Agapito Note: This note is a late entry for 09/06/2020 covers elements not covered in my initial note. Subjective: The patient was seen individually in the evening of 09/06/2020 with Nael EDUARDO, discussed and reviewed the chart. The patient just slept 7 hours previous night. She remains confused, wandering, and compliant with medications. She was pushing another patient in his wheelchair, oblivious of where she was and what she was doing. Review of Systems: No CV, , pulmonary, eye, ENT system symptoms on review. Mental Status Exam: The patient is oriented to herself. Insight and judgement, recent and remote memory, attention and concentration, fund of knowledge is poor consistent with her diagnoses. Laboratory Data: Reviewed. Impression: Major neurocognitive disorder Alzheimer vascular with delusion, depression, behavioral disturbance. Anxiety disorder unspecified. Impulse control disorder unspecified. Plan: After the patient has been on Zoloft 50 mg a day for 3 days, we will increase to 75 mg a day. Continue rest unchanged. Assessment: Vital Signs/I&O: Vital Signs Date Time Temp Pulse Resp B/P (MAP) Pulse Ox O2 Delivery O2 Flow Rate FiO2 09/07/20 15:38 96.9 70 22 135/64 (87) 98 09/03/20 06:21 Room Air I & O 09/06/20 09/06/20 09/07/20 15:00 23:00 07:00 Intake Total 360 ml 120 ml Balance 360 ml 120 ml Labs: Laboratory Tests Test 09/07/20 06:25 White Blood Count 4.0 x10^3/uL (4.0-11.0) Red Blood Count 4.27 x10^6/uL (3.50-5.40) Hemoglobin 13.2 g/dL (12.0-15.5) Hematocrit 40.2 % (36.0-47.0) Mean Corpuscular Volume 94 fL (79-100) Mean Corpuscular Hemoglobin 31 pg (25-35) Mean Corpuscular Hemoglobin Concent 33 g/dL (31-37) Red Cell Distribution Width 13.7 % (11.5-14.5) Platelet Count 208 x10^3/uL (140-400) Neutrophils (%) (Auto) 46 % (31-73) Lymphocytes (%) (Auto) 31 % (24-48) Monocytes (%) (Auto) 14 % (0-9) H Eosinophils (%) (Auto) 9 % (0-3) H Basophils (%) (Auto) 1 % (0-3) Neutrophils # (Auto) 1.8 x10^3uL (1.8-7.7) Lymphocytes # (Auto) 1.2 x10^3/uL (1.0-4.8) Monocytes # (Auto) 0.6 x10^3/uL (0.0-1.1) Eosinophils # (Auto) 0.3 x10^3/uL (0.0-0.7) Basophils # (Auto) 0.0 x10^3/uL (0.0-0.2) Sodium Level 146 mmol/L (136-145) H Potassium Level 3.5 mmol/L (3.5-5.1) Chloride Level 110 mmol/L (98-107) H Carbon Dioxide Level 32 mmol/L (21-32) Anion Gap 4 (6-14) L Blood Urea Nitrogen 26 mg/dL (7-20) H Creatinine 0.8 mg/dL (0.6-1.0) Estimated GFR (Cockcroft-Gault) 68.0 BUN/Creatinine Ratio 33 (6-20) H Glucose Level 95 mg/dL (70-99) Calcium Level 8.6 mg/dL (8.5-10.1) Total Bilirubin 0.3 mg/dL (0.2-1.0) Aspartate Amino Transferase (AST) 16 U/L (15-37) Alanine Aminotransferase (ALT) 21 U/L (14-59) Alkaline Phosphatase 112 U/L (46-116) Total Protein 6.3 g/dL (6.4-8.2) L Albumin 2.9 g/dL (3.4-5.0) L Albumin/Globulin Ratio 0.9 (1.0-1.7) L Current Medications: Meds: Laboratory Tests Test 09/07/20 06:25 White Blood Count 4.0 x10^3/uL Red Blood Count 4.27 x10^6/uL Hemoglobin 13.2 g/dL Hematocrit 40.2 % Mean Corpuscular Volume 94 fL Mean Corpuscular Hemoglobin 31 pg Mean Corpuscular Hemoglobin Concent 33 g/dL Red Cell Distribution Width 13.7 % Platelet Count 208 x10^3/uL Neutrophils (%) (Auto) 46 % Lymphocytes (%) (Auto) 31 % Monocytes (%) (Auto) 14 % Eosinophils (%) (Auto) 9 % Basophils (%) (Auto) 1 % Neutrophils # (Auto) 1.8 x10^3uL Lymphocytes # (Auto) 1.2 x10^3/uL Monocytes # (Auto) 0.6 x10^3/uL Eosinophils # (Auto) 0.3 x10^3/uL Basophils # (Auto) 0.0 x10^3/uL Sodium Level 146 mmol/L Potassium Level 3.5 mmol/L Chloride Level 110 mmol/L Carbon Dioxide Level 32 mmol/L Anion Gap 4 Blood Urea Nitrogen 26 mg/dL Creatinine 0.8 mg/dL Estimated GFR (Cockcroft-Gault) 68.0 BUN/Creatinine Ratio 33 Glucose Level 95 mg/dL Calcium Level 8.6 mg/dL Total Bilirubin 0.3 mg/dL Aspartate Amino Transf (AST/SGOT) 16 U/L Alanine Aminotransferase (ALT/SGPT) 21 U/L Alkaline Phosphatase 112 U/L Total Protein 6.3 g/dL Albumin 2.9 g/dL Albumin/Globulin Ratio 0.9 Current Medications Medications (Trade) Dose Ordered Sig/Elder Route PRN Reason Start Time Stop Time Status Last Admin Dose Admin Acetaminophen (Tylenol) 1,000 mg PRN Q6HRS PRN PO pain or fever 09/02/20 16:30 09/05/20 19:53 Quetiapine Fumarate (SEROquel) 100 mg HS PO 09/02/20 21:00 09/07/20 19:24 Citalopram Hydrobromide (CeleXA) 20 mg DAILY PO 09/03/20 09:00 09/05/20 18:00 DC 09/05/20 12:21 Melatonin (Melatonin) 3 mg QHS PO 09/02/20 21:00 09/07/20 19:23 Multi-Ingredient Ointment (Analgesic [place]) 1 shabnam PRN QID PRN TP MUSCLE PAIN 09/02/20 16:45 Al Hydroxide/Mg Hydroxide (Mylanta Plus Xs) 15 ml PRN AFTMEALHC PRN PO DYSPEPSIA 09/02/20 16:45 Magnesium Hydroxide (Milk Of Magnesia) 2,400 mg PRN QHS PRN PO CONSTIPATION 09/02/20 16:45 Influenza Virus Vaccine Quadrival (Fluzone Quad Syringe) 0.5 ml ONCE ONCE VAX IM 09/02/20 17:00 09/02/20 17:01 DC Influenza Virus Vaccine Quadrival (Fluzone Quad Syringe) 0.5 ml ONCE ONCE VAX IM 09/03/20 09:00 09/03/20 09:01 Cancel Docusate Sodium (Colace) 100 mg DAILY PO 09/04/20 09:00 09/07/20 08:06 Trazodone HCl (Desyrel) 50 mg PRN QHS PRN PO INSOMNIA, MAY REPEAT X1 09/03/20 23:15 09/07/20 19:44 Olanzapine (ZyPREXA ZYDIS) 2.5 mg PRN Q2HRS PRN PO PSYCHOSIS/AGITATION 09/03/20 23:15 09/04/20 23:16 Mirtazapine (Remeron) 7.5 mg QHS PO 09/04/20 21:00 09/07/20 19:23 Cephalexin HCl (Keflex) 250 mg TID PO 09/05/20 09:45 09/09/20 09:44 09/07/20 19:24 Lactobacillus Rhamnosus (Culturelle) 1 cap BID PO 09/05/20 21:00 09/07/20 19:23 Sertraline HCl (Zoloft) 50 mg DAILY PO 09/06/20 09:00 09/08/20 23:50 09/07/20 08:06 Acetaminophen (Tylenol) 500 mg QHS PO 09/06/20 21:00 09/07/20 19:23 Diphenhydramine HCl (Benadryl) 25 mg QHS PO 09/06/20 21:00 09/07/20 19:24 Sertraline HCl (Zoloft) 75 mg DAILY PO 09/09/20 09:00 I have reviewed the current psychotropics carefully including drug interactions. Risk benefit ratio favors no change other than as noted in my dictated progress note. 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
--- NOTE | 2020-09-07 21:54 | PDOC ---
Exam Note: Agapito Note: Please also refer to the separate dictated note~for this date of service dictated separately.~Patient seen individually. Discussed the patient with Nursing staff reviewed the chart.~Reviewed interim history and current functioning. Reviewed vital signs,~Labs/ Radiology~and current medications noted below. Continue current treatment with the changes noted in the dictated addendum note Assessment: Vital Signs/I&O: Vital Signs Date Time Temp Pulse Resp B/P (MAP) Pulse Ox O2 Delivery O2 Flow Rate FiO2 09/07/20 15:38 96.9 70 22 135/64 (87) 98 09/03/20 06:21 Room Air I & O 09/06/20 09/06/20 09/07/20 15:00 23:00 07:00 Intake Total 360 ml 120 ml Balance 360 ml 120 ml Labs: Laboratory Tests Test 09/07/20 06:25 White Blood Count 4.0 x10^3/uL (4.0-11.0) Red Blood Count 4.27 x10^6/uL (3.50-5.40) Hemoglobin 13.2 g/dL (12.0-15.5) Hematocrit 40.2 % (36.0-47.0) Mean Corpuscular Volume 94 fL (79-100) Mean Corpuscular Hemoglobin 31 pg (25-35) Mean Corpuscular Hemoglobin Concent 33 g/dL (31-37) Red Cell Distribution Width 13.7 % (11.5-14.5) Platelet Count 208 x10^3/uL (140-400) Neutrophils (%) (Auto) 46 % (31-73) Lymphocytes (%) (Auto) 31 % (24-48) Monocytes (%) (Auto) 14 % (0-9) H Eosinophils (%) (Auto) 9 % (0-3) H Basophils (%) (Auto) 1 % (0-3) Neutrophils # (Auto) 1.8 x10^3uL (1.8-7.7) Lymphocytes # (Auto) 1.2 x10^3/uL (1.0-4.8) Monocytes # (Auto) 0.6 x10^3/uL (0.0-1.1) Eosinophils # (Auto) 0.3 x10^3/uL (0.0-0.7) Basophils # (Auto) 0.0 x10^3/uL (0.0-0.2) Sodium Level 146 mmol/L (136-145) H Potassium Level 3.5 mmol/L (3.5-5.1) Chloride Level 110 mmol/L (98-107) H Carbon Dioxide Level 32 mmol/L (21-32) Anion Gap 4 (6-14) L Blood Urea Nitrogen 26 mg/dL (7-20) H Creatinine 0.8 mg/dL (0.6-1.0) Estimated GFR (Cockcroft-Gault) 68.0 BUN/Creatinine Ratio 33 (6-20) H Glucose Level 95 mg/dL (70-99) Calcium Level 8.6 mg/dL (8.5-10.1) Total Bilirubin 0.3 mg/dL (0.2-1.0) Aspartate Amino Transferase (AST) 16 U/L (15-37) Alanine Aminotransferase (ALT) 21 U/L (14-59) Alkaline Phosphatase 112 U/L (46-116) Total Protein 6.3 g/dL (6.4-8.2) L Albumin 2.9 g/dL (3.4-5.0) L Albumin/Globulin Ratio 0.9 (1.0-1.7) L Current Medications: Meds: Laboratory Tests Test 09/07/20 06:25 White Blood Count 4.0 x10^3/uL Red Blood Count 4.27 x10^6/uL Hemoglobin 13.2 g/dL Hematocrit 40.2 % Mean Corpuscular Volume 94 fL Mean Corpuscular Hemoglobin 31 pg Mean Corpuscular Hemoglobin Concent 33 g/dL Red Cell Distribution Width 13.7 % Platelet Count 208 x10^3/uL Neutrophils (%) (Auto) 46 % Lymphocytes (%) (Auto) 31 % Monocytes (%) (Auto) 14 % Eosinophils (%) (Auto) 9 % Basophils (%) (Auto) 1 % Neutrophils # (Auto) 1.8 x10^3uL Lymphocytes # (Auto) 1.2 x10^3/uL Monocytes # (Auto) 0.6 x10^3/uL Eosinophils # (Auto) 0.3 x10^3/uL Basophils # (Auto) 0.0 x10^3/uL Sodium Level 146 mmol/L Potassium Level 3.5 mmol/L Chloride Level 110 mmol/L Carbon Dioxide Level 32 mmol/L Anion Gap 4 Blood Urea Nitrogen 26 mg/dL Creatinine 0.8 mg/dL Estimated GFR (Cockcroft-Gault) 68.0 BUN/Creatinine Ratio 33 Glucose Level 95 mg/dL Calcium Level 8.6 mg/dL Total Bilirubin 0.3 mg/dL Aspartate Amino Transf (AST/SGOT) 16 U/L Alanine Aminotransferase (ALT/SGPT) 21 U/L Alkaline Phosphatase 112 U/L Total Protein 6.3 g/dL Albumin 2.9 g/dL Albumin/Globulin Ratio 0.9 Current Medications Medications (Trade) Dose Ordered Sig/Elder Route PRN Reason Start Time Stop Time Status Last Admin Dose Admin Acetaminophen (Tylenol) 1,000 mg PRN Q6HRS PRN PO pain or fever 09/02/20 16:30 09/05/20 19:53 Quetiapine Fumarate (SEROquel) 100 mg HS PO 09/02/20 21:00 09/07/20 19:24 Citalopram Hydrobromide (CeleXA) 20 mg DAILY PO 09/03/20 09:00 09/05/20 18:00 DC 09/05/20 12:21 Melatonin (Melatonin) 3 mg QHS PO 09/02/20 21:00 09/07/20 19:23 Multi-Ingredient Ointment (Analgesic [place]) 1 shabnam PRN QID PRN TP MUSCLE PAIN 09/02/20 16:45 Al Hydroxide/Mg Hydroxide (Mylanta Plus Xs) 15 ml PRN AFTMEALHC PRN PO DYSPEPSIA 09/02/20 16:45 Magnesium Hydroxide (Milk Of Magnesia) 2,400 mg PRN QHS PRN PO CONSTIPATION 09/02/20 16:45 Influenza Virus Vaccine Quadrival (Fluzone Quad Syringe) 0.5 ml ONCE ONCE VAX IM 09/02/20 17:00 09/02/20 17:01 DC Influenza Virus Vaccine Quadrival (Fluzone Quad Syringe) 0.5 ml ONCE ONCE VAX IM 09/03/20 09:00 09/03/20 09:01 Cancel Docusate Sodium (Colace) 100 mg DAILY PO 09/04/20 09:00 09/07/20 08:06 Trazodone HCl (Desyrel) 50 mg PRN QHS PRN PO INSOMNIA, MAY REPEAT X1 09/03/20 23:15 09/07/20 19:44 Olanzapine (ZyPREXA ZYDIS) 2.5 mg PRN Q2HRS PRN PO PSYCHOSIS/AGITATION 09/03/20 23:15 09/04/20 23:16 Mirtazapine (Remeron) 7.5 mg QHS PO 09/04/20 21:00 09/07/20 19:23 Cephalexin HCl (Keflex) 250 mg TID PO 09/05/20 09:45 09/09/20 09:44 09/07/20 19:24 Lactobacillus Rhamnosus (Culturelle) 1 cap BID PO 09/05/20 21:00 09/07/20 19:23 Sertraline HCl (Zoloft) 50 mg DAILY PO 09/06/20 09:00 09/08/20 23:50 09/07/20 08:06 Acetaminophen (Tylenol) 500 mg QHS PO 09/06/20 21:00 09/07/20 19:23 Diphenhydramine HCl (Benadryl) 25 mg QHS PO 09/06/20 21:00 09/07/20 19:24 Sertraline HCl (Zoloft) 75 mg DAILY PO 09/09/20 09:00 I have reviewed the current psychotropics carefully including drug interactions. Risk benefit ratio favors no change other than as noted in my dictated progress note. Diagnosis: Problems: (1) Impulse control disorder, unspecified (2) Anxiety disorder, unspecified (3) Dementia, vascular, with depression (4) Dementia, vascular, with delusions (5) Dementia in Alzheimer's disease with depression (6) Dementia in Alzheimer's disease with delusions (7) Dementia of the Alzheimer's type with early onset with behavioral disturbance (8) Major neurocognitive disorder SOHAM POLO MD Sep 07, 2020 21:54
[2020-09-08 06:01] VITALS: BP 164/77
[2020-09-08] MEDS: CEPHALEXIN 250 MG CAPSULE PO SCH ×3 (08:00→20:40)
[2020-09-08] MEDS: LACTOBACILLUS RHAMNOSUS GG 1 CAPSULE. PO SCH ×2 (08:00→20:40)
[2020-09-08] MEDS: DOCUSATE SODIUM 100 MG CAPSULE PO SCH (08:01)
[2020-09-08] MEDS: SERTRALINE 50 MG TABLET. PO SCH (08:01)
--- NOTE | 2020-09-08 09:07 | PDOC ---
Exam Note: Agapito Note: This note is a late entry for 09/07/2020 covers elements not covered in my initial note. Subjective: The patient was seen individually in the evening of 09/07/2020 with Lori EDUARDO, discussed and reviewed the chart. The patient just slept 6 hours previous night. She remains confused, wandering, and compliant with medications. She is pleasant and smiling as I met with her in the evening. Review of Systems: No CV, , pulmonary, eye, ENT system symptoms on review. Mental Status Exam: The patient is oriented to herself. Insight and judgement, recent and remote memory, attention and concentration, fund of knowledge is poor consistent with her diagnoses. Laboratory Data: Reviewed. Impression: Major neurocognitive disorder Alzheimer vascular with delusion, depression, behavioral disturbance. Anxiety disorder unspecified. Impulse control disorder unspecified. Plan: No change from initial note. Assessment: Vital Signs/I&O: Vital Signs Date Time Temp Pulse Resp B/P (MAP) Pulse Ox O2 Delivery O2 Flow Rate FiO2 09/08/20 06:01 96.2 66 16 164/77 (106) 94 Room Air I & O 09/07/20 09/07/20 09/08/20 15:00 23:00 07:00 Intake Total 480 ml 600 ml Balance 480 ml 600 ml Current Medications: Meds: Current Medications Medications (Trade) Dose Ordered Sig/Elder Route PRN Reason Start Time Stop Time Status Last Admin Dose Admin Acetaminophen (Tylenol) 1,000 mg PRN Q6HRS PRN PO pain or fever 09/02/20 16:30 09/05/20 19:53 Quetiapine Fumarate (SEROquel) 100 mg HS PO 09/02/20 21:00 09/07/20 19:24 Citalopram Hydrobromide (CeleXA) 20 mg DAILY PO 09/03/20 09:00 09/05/20 18:00 DC 09/05/20 12:21 Melatonin (Melatonin) 3 mg QHS PO 09/02/20 21:00 09/07/20 19:23 Multi-Ingredient Ointment (Analgesic [place]) 1 shabnam PRN QID PRN TP MUSCLE PAIN 09/02/20 16:45 Al Hydroxide/Mg Hydroxide (Mylanta Plus Xs) 15 ml PRN AFTMEALHC PRN PO DYSPEPSIA 09/02/20 16:45 Magnesium Hydroxide (Milk Of Magnesia) 2,400 mg PRN QHS PRN PO CONSTIPATION 09/02/20 16:45 Influenza Virus Vaccine Quadrival (Fluzone Quad Syringe) 0.5 ml ONCE ONCE VAX IM 09/02/20 17:00 09/02/20 17:01 DC Influenza Virus Vaccine Quadrival (Fluzone Quad Syringe) 0.5 ml ONCE ONCE VAX IM 09/03/20 09:00 09/03/20 09:01 Cancel Docusate Sodium (Colace) 100 mg DAILY PO 09/04/20 09:00 09/08/20 08:01 Trazodone HCl (Desyrel) 50 mg PRN QHS PRN PO INSOMNIA, MAY REPEAT X1 09/03/20 23:15 09/07/20 19:44 Olanzapine (ZyPREXA ZYDIS) 2.5 mg PRN Q2HRS PRN PO PSYCHOSIS/AGITATION 09/03/20 23:15 09/04/20 23:16 Mirtazapine (Remeron) 7.5 mg QHS PO 09/04/20 21:00 09/07/20 19:23 Cephalexin HCl (Keflex) 250 mg TID PO 09/05/20 09:45 09/09/20 09:44 09/08/20 08:00 Lactobacillus Rhamnosus (Culturelle) 1 cap BID PO 09/05/20 21:00 09/08/20 08:00 Sertraline HCl (Zoloft) 50 mg DAILY PO 09/06/20 09:00 09/08/20 23:50 09/08/20 08:01 Acetaminophen (Tylenol) 500 mg QHS PO 09/06/20 21:00 09/07/20 19:23 Diphenhydramine HCl (Benadryl) 25 mg QHS PO 09/06/20 21:00 09/07/20 19:24 Sertraline HCl (Zoloft) 75 mg DAILY PO 09/09/20 09:00 I have reviewed the current psychotropics carefully including drug interactions. Risk benefit ratio favors no change other than as noted in my dictated progress note. Diagnosis: Problems: (1) Impulse control disorder, unspecified (2) Anxiety disorder, unspecified (3) Dementia, vascular, with depression (4) Dementia, vascular, with delusions (5) Dementia in Alzheimer's disease with depression (6) Dementia in Alzheimer's disease with delusions (7) Dementia of the Alzheimer's type with early onset with behavioral disturbance (8) Major neurocognitive disorder SOHAM POLO MD Sep 08, 2020 09:07
--- NOTE | 2020-09-08 10:37 | NUR ---
Pt cooperative and appropriate in her interactions this shift. She has occasional periods of slight wandering but no overt exit seeking behaviors have been displayed. She is complaint with her medications and takes them whole. She is absent of SI/HI behaviors and has no complaints or concerns at this time. Plan of care continues, will pass on to next shift.
[2020-09-08 15:49] VITALS: BP 164/81
[2020-09-08] MEDS: MIRTAZAPINE 7.5 MG TABLET. PO SCH (20:39)
[2020-09-08] MEDS: traZODone 50 MG TABLET. PO PRN ×2 (20:39→23:55)
[2020-09-08] MEDS: MELATONIN 3 MG TABLET PO SCH (20:39)
[2020-09-08] MEDS: diphenhydrAMINE HCL 25 MG CAPSULE PO SCH (20:39)
[2020-09-08] MEDS: QUEtiapine 100 MG TABLET. PO SCH (20:39)
[2020-09-08] MEDS: ACETAMINOPHEN 500 MG TABLET PO SCH (20:40)
--- NOTE | 2020-09-08 21:30 | NUR ---
Patient is in her room on assumption of care, sitting quietly in her bed. She is compliant with her assessments and medications crushed in vanilla pudding. No agitation. No hallucinations or delusions voiced so far this shift. Denies pain or discomfort. She appears to be sleeping comfortably at present time. Will continue to monitor.
--- NOTE | 2020-09-08 21:38 | PDOC ---
Exam Note: Agapito Note: Please also refer to the separate dictated note~for this date of service dictated separately.~Patient seen individually. Discussed the patient with Nursing staff reviewed the chart.~Reviewed interim history and current functioning. Reviewed vital signs,~Labs/ Radiology~and current medications noted below. Continue current treatment with the changes noted in the dictated addendum note Assessment: Vital Signs/I&O: Vital Signs Date Time Temp Pulse Resp B/P (MAP) Pulse Ox O2 Delivery O2 Flow Rate FiO2 09/08/20 15:49 97.0 72 20 164/81 (108) 95 Room Air I & O 09/07/20 09/07/20 09/08/20 15:00 23:00 07:00 Intake Total 480 ml 600 ml Balance 480 ml 600 ml Current Medications: Meds: Current Medications Medications (Trade) Dose Ordered Sig/Elder Route PRN Reason Start Time Stop Time Status Last Admin Dose Admin Acetaminophen (Tylenol) 1,000 mg PRN Q6HRS PRN PO pain or fever 09/02/20 16:30 09/05/20 19:53 Quetiapine Fumarate (SEROquel) 100 mg HS PO 09/02/20 21:00 09/08/20 20:39 Citalopram Hydrobromide (CeleXA) 20 mg DAILY PO 09/03/20 09:00 09/05/20 18:00 DC 09/05/20 12:21 Melatonin (Melatonin) 3 mg QHS PO 09/02/20 21:00 09/08/20 20:39 Multi-Ingredient Ointment (Analgesic [place]) 1 shabnam PRN QID PRN TP MUSCLE PAIN 09/02/20 16:45 Al Hydroxide/Mg Hydroxide (Mylanta Plus Xs) 15 ml PRN AFTMEALHC PRN PO DYSPEPSIA 09/02/20 16:45 Magnesium Hydroxide (Milk Of Magnesia) 2,400 mg PRN QHS PRN PO CONSTIPATION 09/02/20 16:45 Influenza Virus Vaccine Quadrival (Fluzone Quad Syringe) 0.5 ml ONCE ONCE VAX IM 09/02/20 17:00 09/02/20 17:01 DC Influenza Virus Vaccine Quadrival (Fluzone Quad Syringe) 0.5 ml ONCE ONCE VAX IM 09/03/20 09:00 09/03/20 09:01 Cancel Docusate Sodium (Colace) 100 mg DAILY PO 09/04/20 09:00 09/08/20 08:01 Trazodone HCl (Desyrel) 50 mg PRN QHS PRN PO INSOMNIA, MAY REPEAT X1 09/03/20 23:15 09/08/20 20:39 Olanzapine (ZyPREXA ZYDIS) 2.5 mg PRN Q2HRS PRN PO PSYCHOSIS/AGITATION 09/03/20 23:15 09/04/20 23:16 Mirtazapine (Remeron) 7.5 mg QHS PO 09/04/20 21:00 09/08/20 20:39 Cephalexin HCl (Keflex) 250 mg TID PO 09/05/20 09:45 09/09/20 09:44 09/08/20 20:40 Lactobacillus Rhamnosus (Culturelle) 1 cap BID PO 09/05/20 21:00 09/08/20 20:40 Sertraline HCl (Zoloft) 50 mg DAILY PO 09/06/20 09:00 09/08/20 23:50 09/08/20 08:01 Acetaminophen (Tylenol) 500 mg QHS PO 09/06/20 21:00 09/08/20 20:40 Diphenhydramine HCl (Benadryl) 25 mg QHS PO 09/06/20 21:00 09/08/20 20:39 Sertraline HCl (Zoloft) 75 mg DAILY PO 09/09/20 09:00 I have reviewed the current psychotropics carefully including drug interactions. Risk benefit ratio favors no change other than as noted in my dictated progress note. 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
[2020-09-09 06:45] VITALS: BP 153/66
--- NOTE | 2020-09-09 08:36 | PDOC ---
Exam Note: Agapito Note: This note is a late entry for 09/08/2020 covers elements not covered in my initial note. Subjective: The patient was seen individually in the evening of 09/08/2020 with Alexander EDUARDO, discussed and reviewed the chart. The patient just slept 6 hours previous night. Review of Systems: No CV, , pulmonary, eye, ENT system symptoms on review. Mental Status Exam: The patient is oriented to herself. She was pleasant, smiling as I met with her but confused. Insight and judgement, recent and remote memory, attention and concentration, fund of knowledge is poor consistent with her diagnoses. Laboratory Data: Reviewed. Impression: Major neurocognitive disorder Alzheimer vascular with delusion, depression, behavioral disturbance. Anxiety disorder unspecified. Impulse control disorder unspecified. Plan: No change from initial note. We may need to increase Zoloft further beyond the 75 mg a day but for now maintain unchanged. Dr. Alonso will be covering for me from Friday through September 23, 2020. Assessment: Vital Signs/I&O: Vital Signs Date Time Temp Pulse Resp B/P (MAP) Pulse Ox O2 Delivery O2 Flow Rate FiO2 09/09/20 06:45 97.4 59 16 153/66 (95) 93 Room Air I & O 09/08/20 09/08/20 09/09/20 15:00 23:00 07:00 Intake Total 600 ml 480 ml Balance 600 ml 480 ml Current Medications: Meds: Current Medications Medications (Trade) Dose Ordered Sig/Elder Route PRN Reason Start Time Stop Time Status Last Admin Dose Admin Acetaminophen (Tylenol) 1,000 mg PRN Q6HRS PRN PO pain or fever 09/02/20 16:30 09/05/20 19:53 Quetiapine Fumarate (SEROquel) 100 mg HS PO 09/02/20 21:00 09/08/20 20:39 Citalopram Hydrobromide (CeleXA) 20 mg DAILY PO 09/03/20 09:00 09/05/20 18:00 DC 09/05/20 12:21 Melatonin (Melatonin) 3 mg QHS PO 09/02/20 21:00 09/08/20 20:39 Multi-Ingredient Ointment (Analgesic [place]) 1 shabnam PRN QID PRN TP MUSCLE PAIN 09/02/20 16:45 Al Hydroxide/Mg Hydroxide (Mylanta Plus Xs) 15 ml PRN AFTMEALHC PRN PO DYSPEPSIA 09/02/20 16:45 Magnesium Hydroxide (Milk Of Magnesia) 2,400 mg PRN QHS PRN PO CONSTIPATION 09/02/20 16:45 Influenza Virus Vaccine Quadrival (Fluzone Quad Syringe) 0.5 ml ONCE ONCE VAX IM 09/02/20 17:00 09/02/20 17:01 DC Influenza Virus Vaccine Quadrival (Fluzone Quad Syringe) 0.5 ml ONCE ONCE VAX IM 09/03/20 09:00 09/03/20 09:01 Cancel Docusate Sodium (Colace) 100 mg DAILY PO 09/04/20 09:00 09/08/20 08:01 Trazodone HCl (Desyrel) 50 mg PRN QHS PRN PO INSOMNIA, MAY REPEAT X1 09/03/20 23:15 09/08/20 23:55 Olanzapine (ZyPREXA ZYDIS) 2.5 mg PRN Q2HRS PRN PO PSYCHOSIS/AGITATION 09/03/20 23:15 09/08/20 23:55 Mirtazapine (Remeron) 7.5 mg QHS PO 09/04/20 21:00 09/08/20 20:39 Cephalexin HCl (Keflex) 250 mg TID PO 09/05/20 09:45 09/09/20 09:44 09/08/20 20:40 Lactobacillus Rhamnosus (Culturelle) 1 cap BID PO 09/05/20 21:00 09/08/20 20:40 Sertraline HCl (Zoloft) 50 mg DAILY PO 09/06/20 09:00 09/08/20 23:50 DC 09/08/20 08:01 Acetaminophen (Tylenol) 500 mg QHS PO 09/06/20 21:00 09/08/20 20:40 Diphenhydramine HCl (Benadryl) 25 mg QHS PO 09/06/20 21:00 09/08/20 20:39 Sertraline HCl (Zoloft) 75 mg DAILY PO 09/09/20 09:00 I have reviewed the current psychotropics carefully including drug interactions. Risk benefit ratio favors no change other than as noted in my dictated progress note. Diagnosis: Problems: (1) Impulse control disorder, unspecified (2) Anxiety disorder, unspecified (3) Dementia, vascular, with depression (4) Dementia, vascular, with delusions (5) Dementia in Alzheimer's disease with depression (6) Dementia in Alzheimer's disease with delusions (7) Dementia of the Alzheimer's type with early onset with behavioral disturbance (8) Major neurocognitive disorder SOHAM POLO MD Sep 09, 2020 08:36
[2020-09-09] MEDS: SERTRALINE 50 MG TABLET. PO SCH (08:52)
[2020-09-09] MEDS: LACTOBACILLUS RHAMNOSUS GG 1 CAPSULE. PO SCH ×2 (08:52→20:08)
[2020-09-09] MEDS: CEPHALEXIN 250 MG CAPSULE PO SCH (08:52)
[2020-09-09] MEDS: DOCUSATE SODIUM 100 MG CAPSULE PO SCH (08:52)
[2020-09-09] MEDS: ACETAMINOPHEN 500 MG TABLET PO PRN (08:53)
[2020-09-09 16:39] VITALS: BP 126/72
--- NOTE | 2020-09-09 18:15 | PN ---
DATE: 09/09/2020 SUBJECTIVE: The patient was seen today, met with the staff, chart reviewed, also covering for Dr. David. The patient tend to pace constantly, confused, has received p.r.n., trazodone and Zyprexa Zydis and he is having problems with sleep. The patient is also exhibiting increased confusion. OBSERVATION: VITAL SIGNS: Temperature 97.5, blood pressure 153/66, pulse 59, respirations 16, O2 sat 93%. GENERAL: Slept about 5 hours last night. The patient's appetite is fair. MEDICATIONS: The patient's current medications reviewed and is on Zoloft 75 mg daily, mirtazapine 7.5 mg at night, Seroquel 100 mg at night, also on olanzapine 2.5 mg q. 2 hours p.r.n. The patient is not exhibiting any side effects. LABORATORY DATA: The patient's lab reviewed. ASSESSMENT: 1. Major neurocognitive disorder, most likely Alzheimer's, vascular with delusions, depression, and behavioral disturbances. 2. Anxiety disorder, unspecified. 3. Impulse control disorder, unspecified. PLAN: Continue with the current treatment plan. Continue with the current medications. LENGTH OF STAY: 7 days. MICHAEL IRVIN MD DR: KAYA/tulio JOB#: [id number] / [id number] KAILEY
[2020-09-09] MEDS: diphenhydrAMINE HCL 25 MG CAPSULE PO SCH (20:08)
[2020-09-09] MEDS: MELATONIN 3 MG TABLET PO SCH (20:09)
[2020-09-09] MEDS: ACETAMINOPHEN 500 MG TABLET PO SCH (20:09)
[2020-09-09] MEDS: traZODone 50 MG TABLET. PO PRN ×2 (20:09→23:44)
[2020-09-09] MEDS: MIRTAZAPINE 7.5 MG TABLET. PO SCH (20:10)
[2020-09-09] MEDS: QUEtiapine 100 MG TABLET. PO SCH (20:10)
--- NOTE | 2020-09-09 21:55 | NUR ---
Patient is in the day room on assumption of care, socializing with a peer. Attempted to give medications whole, but patient just chewed them despite instructions. No agitation. No hallucinations or delusions voiced so far this shift. Denies pain or discomfort. She appears to be sleeping comfortably at present time. Will continue to monitor.
[2020-09-10 06:19] VITALS: BP 168/88
[2020-09-10] MEDS: LACTOBACILLUS RHAMNOSUS GG 1 CAPSULE. PO SCH ×2 (08:30→19:55)
[2020-09-10] MEDS: DOCUSATE SODIUM 100 MG CAPSULE PO SCH (08:30)
[2020-09-10] MEDS: SERTRALINE 50 MG TABLET. PO SCH (08:30)
[2020-09-10] MEDS: NYSTATIN TOPICAL POWDER 15GM BOTTLE. TP SCH ×2 (08:30→19:55)
[2020-09-10 16:21] VITALS: BP 159/84
[2020-09-10] MEDS: MIRTAZAPINE 7.5 MG TABLET. PO SCH (19:55)
[2020-09-10] MEDS: QUEtiapine 100 MG TABLET. PO SCH (19:56)
[2020-09-10] MEDS: MELATONIN 3 MG TABLET PO SCH (19:56)
[2020-09-10] MEDS: ACETAMINOPHEN 500 MG TABLET PO SCH (19:56)
[2020-09-10] MEDS: traZODone 50 MG TABLET. PO PRN ×2 (19:57→21:56)
[2020-09-10] MEDS: diphenhydrAMINE HCL 25 MG CAPSULE PO SCH (19:57)
--- NOTE | 2020-09-10 20:29 | PN ---
DATE: 09/10/2020 SUBJECTIVE: The patient was seen today, met with the staff, chart reviewed and also covering Dr. David. The patient continues to be confused, increased anxiety and misidentification of people, difficult to redirect. OBSERVATION: VITAL SIGNS: Temperature 97.0, blood pressure 168/88, pulse 62, respirations 20, O2 sat 93. GENERAL: The patient slept about 4 hours last night. The patient's appetite is fair. LABORATORY DATA: The patient's lab reviewed. MEDICATIONS: The patient's current medications include Zoloft 75 mg daily, mirtazapine 7.5 mg at night, melatonin 3 mg at night, Seroquel 100 mg at night. ASSESSMENT: 1. Major neurocognitive disorder, most likely Alzheimer's, vascular with delusion, depression, and behavioral disturbances. 2. Anxiety disorder, unspecified. 3. Impulse control disorder, unspecified. PLAN: To continue with the current treatment plan. LENGTH OF STAY: 7 days. MICHAEL IRVIN MD DR: KAYA/tulio JOB#: [id number] / [id number] KAILEY
--- NOTE | 2020-09-10 21:20 | NUR ---
Patient is in the day room on assumption of care, coloring pictures at the table. Compliant with assessments and medications taken crushed in vanilla ice cream. No agitation. No hallucinations or delusions voiced so far this shift. Denies pain or discomfort. She appears to be sleeping comfortably at present time. Will continue to monitor.
[2020-09-11] MEDS: NYSTATIN TOPICAL POWDER 15GM BOTTLE. TP SCH ×2 (09:00→19:39)
[2020-09-11] MEDS: LACTOBACILLUS RHAMNOSUS GG 1 CAPSULE. PO SCH ×2 (10:45→19:38)
[2020-09-11] MEDS: SERTRALINE 50 MG TABLET. PO SCH (10:45)
[2020-09-11] MEDS: DOCUSATE SODIUM 100 MG CAPSULE PO SCH (10:45)
--- NOTE | 2020-09-11 12:45 | NUR ---
WEEKLY ACTIVITY THERAPY NOTE Date of Admission: 09/02/20 Date of AT Assessment: 09/05 Precipitating behaviors that initiated intake and admission:agitation aggression, hallucinating Goal aimed: time management and sensory stimulation Initial Goal: Pt will participate in at least three individual or group Activity Therapy sessions before discharge. Weekly progress towards goal: on track (09/05-flower arranging, 09/08- emotions bingo) Group participation level: 1 min, 1 mod Weekly highlights: flower arranging on Friday Behaviors observed: hand over hand assistance required for flower arranging, often wandering and confused, unable to follow directions during bingo game Friday Plan: no change to goal Beneficial adaptations:
--- NOTE | 2020-09-11 14:36 | NUR ---
PATIENT IS AWAKE IN A BED UPON ASSESSMENT, ANXIOUS TO GET UP AND GO TO THE BATHROOM. PATIENT IS ABLE TO FOLLOW DIRECTION AND COOPERATIVE WITH ADLS, COMPLIANT WITH MEDICATIONS. PATIENT IS CURRENTLY IN A DAY ROOM SITTING QUIETLY.
[2020-09-11 15:10] VITALS: BP 133/81
--- NOTE | 2020-09-11 15:42 | NUR ---
ALEKSANDAR received a call from pt dtr Cristal. ALEKSANDAR went over the treatment team report and mentioned that pt would be discharge middle to late next week. At this time, pt does well during the day but appears to definitely , as pt is more restless and anxious in the late afternoon/evening hours. It was also noted that pt does not have any patience with her cares. Pt did receive Trazodone and Zyprexa Zydis last night and ended up sleeping in this morning. ALEKSANDAR will continue to give Cristal updates and work on having pt discharged back home towards the middle of next week.
--- NOTE | 2020-09-11 16:20 | NUR ---
Treatment team update: Pt is eating roughly 75% of meals and sleeping on average 6 hours per night. However, last night pt appeared to be restless and anxious; receiving Trazodone PRN twice and a dose of Zyprexa before pt was able to go to sleep. Pt slept in this morning, but was able to get up and have breakfast with no issues. Pt will plan to discharge back home with her daughter and community services. SW will continue to keep pt dtr up to date and finalize discharge plans potentially for the middle of next week.
--- NOTE | 2020-09-11 16:23 | TX PLAN ---
Interdisciplinary Tx Plan Admission Information Sep 02, 2020 at 14:55 Legal Status (on Admission): Voluntary DPOA/Guardian Name: Cristal Stein Contact Other Contact Name: Cristal Stein Other Contact Verified Code Status: DNR Allergies: Coded Allergies: diphenhydramine (Verified Allergy, Unknown, 09/02/20) lorazepam (Verified Adverse Reaction, Mild, Increased agitation , 09/01/20) Diagnoses Primary Diagnosis: Major Neurocognitive D/O, vascular Alzheimer's with delusions, depression, and behavioral disturbance. Reasons for Admission: Delusions, Agitated, Depressed, Sig. Change Sleep, H allucinations, Other Problem in Patient's Words: She is not sleeping and is beginning to have more behaviors Additional Admission Comments: According to the intake, pt stated that it would be easier if she wasn't here; tries to get out of the windows, kicked daughter, seeing little boys, talking to spouse, thinks the tv is talking about her, verbally agitated with her dtr. Problems Active Problems: delusional visual hallucinations agitated depressed Inactive Problems: medication management Pt Strengths/Limitations Ability for Caret: Poor Cognitive Functioning/Ability: Poor Communication Skills/Ability: Fair Financial Resources: Fair Insight/Judgement: Poor Intellectual Ability: Fair Physical Health: Fair Social Skills: Fair Stability in Family: Good Stability in School/Work: Poor Verbal Skills: Fair Discharge Criteria Discharge Criteria: Adequate arrangements @DC, Improved behavior, Improved mood/thought Preliminary Discharge Plan Preliminary DC Plan: Current Living Arrange. Special Precautions Fall Risk: Low Initial D/C Plan Identified Discharge Needs: Potential psychiatric services Identified Problems/Hx/Goals Objectives/Short-Term Goals Short Term Goals: Dec. Symp. Depression, Medication Stabilization, Prevent Deterioration Short Term Goals in Patient's: N/A Interventions/Frequency Staff Interventions/Frequency&: Psychiatrist to assess pt at least 3x per week for medication management. Social Work to assess pt at least 2x per week for identification of barriers of care and discharge planning. Nursing to assess medication effects, behavior management and completion of 15 minute checks. 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 Education: Pt did graduate high school unlike her siblings. Community Follow-up Primary Care Physician Neurologist Treatment Plan Explained Patient/Back Order Clerk had this treatment plan explained to him/her as indicated by the signature below and has been given the opportunity to ask questions and make suggestions: Date: Patient/Back Order Clerk Signature: Status Update Update Treatment team update: Pt is eating roughly 75% of meals and sleeping on average 6 hours per night. However, last night pt appeared to be restless and anxious; receiving Trazodone PRN twice and a dose of Zyprexa before pt was able to go to sleep. Pt slept in this morning, but was able to get up and have breakfast with no issues. Pt will plan to discharge back home with her daughter and community services. SW will continue to keep pt dtr up to date and finalize discharge plans potentially for the middle of next week. OPAL ROSE Sep 11, 2020 16:23
[2020-09-11] MEDS: MIRTAZAPINE 7.5 MG TABLET. PO SCH (19:37)
[2020-09-11] MEDS: MELATONIN 3 MG TABLET PO SCH (19:37)
[2020-09-11] MEDS: QUEtiapine 100 MG TABLET. PO SCH (19:38)
[2020-09-11] MEDS: ACETAMINOPHEN 500 MG TABLET PO SCH (19:38)
[2020-09-11] MEDS: traZODone 50 MG TABLET. PO PRN (19:39)
[2020-09-11] MEDS: AMMONIUM LACTATE 12% TOPICAL LOTION 226GM BOTTLE. TP SCH (19:40)
--- NOTE | 2020-09-11 20:47 | NUR ---
Patient is in the day room on assumption of care, watching television with peers. She is in pleasant spirits. Polite and interactive. Compliant with assessments and medications taken crushed in vanilla ice cream. No agitation. No hallucinations or delusions voiced so far this shift. Denies pain or discomfort. She appears to be sleeping comfortably at present time. Will continue to monitor.
--- NOTE | 2020-09-11 23:43 | PN ---
DATE: 09/11/2020 SUBJECTIVE: The patient was seen today, met with the staff, chart reviewed and also discussed with the treatment team review. The patient continues to be restless. The patient is also receiving p.r.n. medication including trazodone and Zyprexa Zydis because she is not able to sleep and also gets agitated easily. She is compliant with the medications. OBSERVATION: VITAL SIGNS: The patient refused vital signs today. GENERAL: The patient slept about 4 hours last night. CURRENT MEDICATIONS: The patient's current medications include Zoloft 75 mg daily, mirtazapine 7.5 mg at night, melatonin 3 mg at night, and Seroquel 100 mg at night. ASSESSMENT: 1. Major neurocognitive disorder, most likely Alzheimer's, vascular with the depression and behavioral disturbances. 2. Anxiety disorder, unspecified. PLAN: To continue with the treatment. LENGTH OF STAY: 7 days. MICHAEL IRVIN MD DR: KAYA/tulio JOB#: [id number] / [id number]
[2020-09-12 05:50] VITALS: BP 138/73
[2020-09-12] MEDS: DOCUSATE SODIUM 100 MG CAPSULE PO SCH (08:12)
[2020-09-12] MEDS: LACTOBACILLUS RHAMNOSUS GG 1 CAPSULE. PO SCH ×2 (08:12→20:40)
[2020-09-12] MEDS: SERTRALINE 50 MG TABLET. PO SCH (08:12)
[2020-09-12] MEDS: AMMONIUM LACTATE 12% TOPICAL LOTION 226GM BOTTLE. TP SCH ×2 (09:00→20:40)
--- NOTE | 2020-09-12 09:48 | NUR ---
Pt quiet and introverted this shift. Her interactions with patients and staff have been appropriate thus far. She is complaint with her medications and takes them crushed and mixed with pudding. She is absent of SI/HI behaviors and has no complaints or concerns at this time. Plan of care continues, will pass on to next shift.
[2020-09-12] MEDS: NYSTATIN TOPICAL POWDER 15GM BOTTLE. TP SCH ×2 (10:00→20:41)
[2020-09-12 16:05] VITALS: BP 157/82
[2020-09-12] MEDS: MELATONIN 3 MG TABLET PO SCH (20:40)
[2020-09-12] MEDS: MIRTAZAPINE 7.5 MG TABLET. PO SCH (20:40)
[2020-09-12] MEDS: QUEtiapine 100 MG TABLET. PO SCH (20:40)
[2020-09-12] MEDS: ACETAMINOPHEN 500 MG TABLET PO SCH (20:40)
--- NOTE | 2020-09-12 22:54 | PN ---
DATE: 09/12/2020 SUBJECTIVE: The patient was seen today, met with the staff, chart reviewed and also covering for Dr. David. Staff reports continued behavior problems, needing p.r.n. medications. He gets agitated easily and compliant with the medications. OBSERVATION: VITAL SIGNS: Temperature 96.9, blood pressure 138/73, pulse 76, respirations 18, O2 sat 95%. Slept about 5-1/2 hours last night. CURRENT MEDICATIONS: The patient's current medications include Zoloft 75 mg daily, mirtazapine 7.5 mg at night, melatonin 3 mg at night, and Seroquel 100 mg at night. ASSESSMENT: 1. Major neurocognitive disorder, most likely Alzheimer's, vascular, with depression and behavioral disturbances. 2. Anxiety disorder, unspecified. PLAN: To continue with treatment. LENGTH OF STAY: 7 days. MICHAEL IRVIN MD DR: KAYA/tulio JOB#: [id number] / [id number]
--- NOTE | 2020-09-12 23:10 | NUR ---
Pt wandering in day room, periodically sitting down to socialize with staff and peers. Pleasantly confused, smiling. Med compliant crushed in pudding.
[2020-09-13 05:53] VITALS: BP 160/81
[2020-09-13] MEDS: DOCUSATE SODIUM 100 MG CAPSULE PO SCH (07:21)
[2020-09-13] MEDS: AMMONIUM LACTATE 12% TOPICAL LOTION 226GM BOTTLE. TP SCH ×2 (07:21→20:12)
[2020-09-13] MEDS: NYSTATIN TOPICAL POWDER 15GM BOTTLE. TP SCH ×2 (07:21→20:12)
[2020-09-13] MEDS: SERTRALINE 50 MG TABLET. PO SCH (07:21)
[2020-09-13] MEDS: LACTOBACILLUS RHAMNOSUS GG 1 CAPSULE. PO SCH ×2 (07:21→20:10)
--- NOTE | 2020-09-13 11:41 | NUR ---
ALEKSANDAR returned call to pt dtr, Cristal, to let her know that pt will not be able to receive her 2nd Covid shot while on [facility]. However, with pt behavior, it was possible to have her discharged on Friday. Pt is pleasant and compliant. Appears to be doing better with the medications she's on and staff enjoy having her around. Pt dtr is fine with a Friday discharge and questioned which provider would most likely cover her medication refills. ALEKSANDAR reports that the neurologist should be able to; if pt Primary Care Physician. ALEKSANDAR may see about getting pt scheduled with a psychiatrist if there is one in the [facility]. ALEKSANDAR will follow up with Cristal later in the week to finalize Friday discharge.
--- NOTE | 2020-09-13 15:11 | NUR ---
NURSING NOTE PT IS PLEASANTLY CONFUSED THIS AM, PT TAKES HER MEDS WHOLE, PT AMBULATES INDEPENDENTLY AROUND UNIT. PT SINGING DURING GROUP AND PARTICIPATING. PT ALWAYS SMILING. NO BEHAVIORS NOTED. JAYCE JASON.
[2020-09-13 15:24] VITALS: BP 141/73
[2020-09-13] MEDS: MIRTAZAPINE 7.5 MG TABLET. PO SCH (20:10)
[2020-09-13] MEDS: MELATONIN 3 MG TABLET PO SCH (20:10)
[2020-09-13] MEDS: ACETAMINOPHEN 500 MG TABLET PO SCH (20:11)
[2020-09-13] MEDS: QUEtiapine 100 MG TABLET. PO SCH (20:11)
[2020-09-14] MEDS: traZODone 50 MG TABLET. PO PRN (00:06)
--- NOTE | 2020-09-14 00:07 | NUR ---
Last evening pt walked quietly around hallway and has been pleasant and cooperative. She remains confused but has had no behaviors. After going to bed she was restless and scratching a left upper thigh. Vesicular rash was found in that area 2.5 x 2.0 cm photo taken and pink foam dressing applied. PRN trazodone was given at 2250 for insomnia.
--- NOTE | 2020-09-14 02:25 | NUR ---
PRN zyprexa zydis was given at 0020. Pt had remained awake aqnd was picking things out of air and holding it in her hands. Then was getting OOB to go find Nael. Approx 30 minutes after taking Zyprexa she fell to sleep.
[2020-09-14 06:04] VITALS: BP 171/79
[2020-09-14 07:11] LABS: BASO % 1 % (0-3); EOS # 0.4 x10^3/uL (0.0-0.7); EOS % 9 % (0-3); HEMATOCRIT 41.1 % (36.0-47.0); HEMOGLOBIN 13.7 g/dL (12.0-15.5); LYMPH # 1.3 x10^3/uL (1.0-4.8); LYMPH % 29 % (24-48); MEAN CORPUSCULAR HEMOGLOBIN 31 pg (25-35); MEAN CORPUSCULAR HGB CONC 33 g/dL (31-37); MEAN CORPUSCULAR VOLUME 95 fL (79-100); MONO # 0.6 x10^3/uL (0.0-1.1); MONO % 14 % (0-9); NEUT # 2.1 x10^3uL (1.8-7.7); NEUT % 47 % (31-73); PLATELET COUNT 204 x10^3/uL (140-400); RED BLOOD COUNT 4.35 x10^6/uL (3.50-5.40); RED CELL DISTRIBUTION WIDTH 13.9 % (11.5-14.5); WHITE BLOOD COUNT 4.4 x10^3/uL (4.0-11.0)
[2020-09-14 07:25] LABS: ALBUMIN 3.2 g/dL (3.4-5.0); ALBUMIN/GLOBULIN RATIO 0.9 (1.0-1.7); CALCIUM 8.6 mg/dL (8.5-10.1); CREATININE 0.7 mg/dL (0.6-1.0); GFR 79.3; POTASSIUM 3.8 mmol/L (3.5-5.1); TOTAL BILIRUBIN 0.3 mg/dL (0.2-1.0); TOTAL PROTEIN 6.7 g/dL (6.4-8.2)
[2020-09-14] MEDS: SERTRALINE 50 MG TABLET. PO SCH (08:18)
[2020-09-14] MEDS: DOCUSATE SODIUM 100 MG CAPSULE PO SCH (08:18)
[2020-09-14] MEDS: LACTOBACILLUS RHAMNOSUS GG 1 CAPSULE. PO SCH ×2 (08:18→20:13)
[2020-09-14] MEDS: AMMONIUM LACTATE 12% TOPICAL LOTION 226GM BOTTLE. TP SCH ×2 (09:00→20:14)
[2020-09-14] MEDS: NYSTATIN TOPICAL POWDER 15GM BOTTLE. TP SCH ×2 (09:00→20:15)
--- NOTE | 2020-09-14 13:32 | NUR ---
Pt quiet and introverted this shift. Her interactions with patients and staff have been appropriate thus far. She is complaint with her medications and was able to take them whole with verbal encouragement. She is absent of SI/HI behaviors and has no complaints or concerns at this time. She denies pain when asked. Plan of care continues, will pass on to next shift.
[2020-09-14 16:10] VITALS: BP_SYST 124; BP_SYST 146; BP_DIAS 70; BP_DIAS 81
[2020-09-14] MEDS: ACETAMINOPHEN 500 MG TABLET PO SCH (20:13)
[2020-09-14] MEDS: MELATONIN 3 MG TABLET PO SCH (20:13)
[2020-09-14] MEDS: MIRTAZAPINE 7.5 MG TABLET. PO SCH (20:13)
[2020-09-14] MEDS: QUEtiapine 100 MG TABLET. PO SCH (20:14)
--- NOTE | 2020-09-14 22:25 | PN ---
DATE: 09/14/2020 SUBJECTIVE: The patient was seen today, met with the staff, chart reviewed and also covering for Dr. David. Staff reports continued behavior problems. Still seeking attention and also agitated easily. She is compliant with the medications. OBJECTIVE: VITAL SIGNS: The patient's blood pressure 110/79, pulse 61, respirations 18, O2 sat 93%. GENERAL: Slept about 9 hours last night. MEDICATIONS: The patient's medications reviewed. Currently, she is on Zoloft 75 mg daily, mirtazapine 7.5 mg at night, melatonin 3 mg at night, and Seroquel 100 mg at night. LABORATORY DATA: The patient's lab reviewed. ASSESSMENT: 1. Major neurocognitive disorder, most likely vascular with depression and behavioral disturbances. 2. Anxiety disorder, unspecified. PLAN: To continue with the treatment. LENGTH OF STAY: 7 days. MICHAEL IRVIN MD DR: KAYA/tulio JOB#: [id number] / [id number]
--- NOTE | 2020-09-15 01:19 | NUR ---
Dorene pt has been pleasant and cooperative. She remains confused and interacts well with peers. She has had no behaviors tonight.
[2020-09-15 06:24] VITALS: BP 165/76
[2020-09-15] MEDS: SERTRALINE 50 MG TABLET. PO SCH (07:25)
[2020-09-15] MEDS: LACTOBACILLUS RHAMNOSUS GG 1 CAPSULE. PO SCH ×2 (07:25→20:17)
[2020-09-15] MEDS: DOCUSATE SODIUM 100 MG CAPSULE PO SCH (07:25)
--- NOTE | 2020-09-15 09:48 | NUR ---
Pt A&O to self only,; quiet, confused, and disorganized. Her interactions with patients and staff have been appropriate thus far. She is complaint with her medications and was able to take them whole with verbal encouragement. She denies pain when asked. Plan of care continues, will pass on to next shift.
[2020-09-15] MEDS: NYSTATIN TOPICAL POWDER 15GM BOTTLE. TP SCH ×2 (10:04→20:16)
[2020-09-15] MEDS: AMMONIUM LACTATE 12% TOPICAL LOTION 226GM BOTTLE. TP SCH ×2 (10:04→20:20)
[2020-09-15 15:46] VITALS: BP 130/72
--- NOTE | 2020-09-15 16:01 | NUR ---
[facility] Social Work Discharge Planning Form Patient Name YODIT ANDERSON Admit Date: 02 September 2020 DISCHARGE PLAN Discharge Destination: Pt to discharge home with daughterCristal Assessment: NA Level II Assessment: NA Transportation: Pt daughter to pick pt up; will call Friday morning with transport time. Special Instructions/Notes: Please fax discharge orders, discharge medication list and discharge summary to the fax numbers listed below. DISCHARGE TO HOME: Address: [address] [place] [address]; [place] [address] Responsible Libertarian: Cristal Stein Pharmacy: [facility] Contact Information: [address] [facility], [place] [address] Neurologist Follow Up: Dr. Warren Contact Information: [address], [address]; [place] [address] Appointment: 11/08/2020 @ 11:00AM Primary Care Follow Up: Kuldeep Garcia Contact Information: [address]; [place] [address] Appointment: 09/25/2020 @ 8:00AM
[2020-09-15] MEDS: QUEtiapine 100 MG TABLET. PO SCH (20:17)
[2020-09-15] MEDS: MELATONIN 3 MG TABLET PO SCH (20:17)
[2020-09-15] MEDS: traZODone 50 MG TABLET. PO PRN (20:17)
[2020-09-15] MEDS: MIRTAZAPINE 7.5 MG TABLET. PO SCH (20:17)
[2020-09-15] MEDS: ACETAMINOPHEN 500 MG TABLET PO SCH (20:17)
--- NOTE | 2020-09-15 20:52 | PN ---
DATE: 09/15/2020 SUBJECTIVE: The patient was seen today, met with the staff, chart reviewed and also covering for Dr. David. The patient is confused, but appropriate, tend to wander in the hallways. She is compliant with her medications. OBJECTIVE: VITAL SIGNS: Temperature 98.5, blood pressure 165/76, pulse 67, respirations 20, O2 sat 95%. GENERAL: Slept about 7 hours last night. The patient's appetite is fair. MEDICATIONS: The patient's current medications include Zoloft 75 mg daily, mirtazapine 7.5 mg at night, melatonin 3 mg at night, and Seroquel 100 mg at night. LABORATORY DATA: Reviewed. ASSESSMENT: 1. Major neurocognitive disorder, most likely vascular with depression and behavioral disturbances. 2. Anxiety disorder, unspecified. PLAN: To continue with the treatment. LENGTH OF STAY: 7 days. MICHAEL IRVIN MD DR: KAYA/tulio JOB#: [id number] / [id number]
--- NOTE | 2020-09-16 03:13 | NUR ---
Last evening pt was in the day room and was social with peers and staff. She took meds whole with some prompting. She remains confused and disorganized and has been cooperative with cares and had no behaviors.
[2020-09-16 06:12] VITALS: BP 166/78
[2020-09-16] MEDS: SERTRALINE 50 MG TABLET. PO SCH (08:08)
[2020-09-16] MEDS: LACTOBACILLUS RHAMNOSUS GG 1 CAPSULE. PO SCH ×2 (08:08→20:03)
[2020-09-16] MEDS: DOCUSATE SODIUM 100 MG CAPSULE PO SCH (08:08)
[2020-09-16] MEDS: AMMONIUM LACTATE 12% TOPICAL LOTION 226GM BOTTLE. TP SCH ×2 (08:09→20:05)
[2020-09-16] MEDS: NYSTATIN TOPICAL POWDER 15GM BOTTLE. TP SCH ×2 (08:09→20:05)
--- NOTE | 2020-09-16 09:41 | NUR ---
Patient is calm and cooperative. patient appears to be shy and does not speak much.
[2020-09-16 16:45] VITALS: BP 121/62
--- NOTE | 2020-09-16 19:58 | PN ---
DATE: 09/16/2020 SUBJECTIVE: The patient was seen today, met with the staff, chart reviewed, and covering for Dr. David. Staff reports no major behavior problems except confusion, tend to wander. She enjoys being outside in the back patio. The patient's most of the time, pleasant, but confused. OBSERVATION: VITAL SIGNS: Temperature 97.5, blood pressure 166/78, pulse 61, respirations 16, O2 sat 95%. GENERAL: Slept about 6 hours last night. The patient's appetite is fair. MEDICATIONS: The patient's current medications include Zoloft 75 mg daily, mirtazapine 7.5 mg at night, melatonin 3 mg at night, and Seroquel 100 mg at night. LABORATORY DATA: The patient's lab reviewed. ASSESSMENT: 1. Major neurocognitive disorder, most likely vascular with the depression and behavioral disturbances. 2. Anxiety disorder, unspecified. PLAN: To continue with the treatment. LENGTH OF STAY: 7 days. MICHAEL IRVIN MD DR: KAYA/tulio JOB#: [id number] / [id number]
[2020-09-16] MEDS: ACETAMINOPHEN 500 MG TABLET PO SCH (20:03)
[2020-09-16] MEDS: QUEtiapine 100 MG TABLET. PO SCH (20:03)
[2020-09-16] MEDS: MIRTAZAPINE 7.5 MG TABLET. PO SCH (20:03)
[2020-09-16] MEDS: MELATONIN 3 MG TABLET PO SCH (20:03)
[2020-09-16] MEDS: traZODone 50 MG TABLET. PO PRN ×2 (20:05→23:31)
--- NOTE | 2020-09-16 23:37 | NUR ---
Pt located in the dayroom this evening interacting with peers. Pt calm, pleasant and cooperative. Compliant with whole medications, however pt chewed the pills. Later in the evening, pt very restless in her room refusing to stay in bed. Repeat Trazodone and Zydis administered at this time.
[2020-09-17 06:02] VITALS: BP 166/89
[2020-09-17] MEDS: LACTOBACILLUS RHAMNOSUS GG 1 CAPSULE. PO SCH ×2 (07:52→19:45)
[2020-09-17] MEDS: SERTRALINE 50 MG TABLET. PO SCH (07:52)
[2020-09-17] MEDS: DOCUSATE SODIUM 100 MG CAPSULE PO SCH (07:52)
[2020-09-17] MEDS: AMMONIUM LACTATE 12% TOPICAL LOTION 226GM BOTTLE. TP SCH ×2 (07:52→19:45)
[2020-09-17] MEDS: NYSTATIN TOPICAL POWDER 15GM BOTTLE. TP SCH ×2 (07:52→19:46)
--- NOTE | 2020-09-17 09:01 | NUR ---
Patient currently resting in her bed. patient easy to arouse and is in a good mood. patient compliant with medication and assessment.
[2020-09-17 16:20] VITALS: BP 127/71
[2020-09-17] MEDS: MELATONIN 3 MG TABLET PO SCH (19:45)
[2020-09-17] MEDS: QUEtiapine 100 MG TABLET. PO SCH (19:45)
[2020-09-17] MEDS: MIRTAZAPINE 7.5 MG TABLET. PO SCH (19:45)
[2020-09-17] MEDS: ACETAMINOPHEN 500 MG TABLET PO SCH (19:45)
[2020-09-17] MEDS: traZODone 50 MG TABLET. PO PRN (19:51)
[2020-09-17] MEDS ORDERED: ACET500T68 PO (21:33)
[2020-09-17] MEDS ORDERED: AMMO226L TP (21:36)
[2020-09-17] MEDS ORDERED: DOCU-109 PO (21:38)
[2020-09-17] MEDS ORDERED: MAG-115 PO (21:40)
[2020-09-17] MEDS ORDERED: MAGN24003 PO (21:41)
[2020-09-17] MEDS ORDERED: METH28OI2 TP (21:42)
[2020-09-17] MEDS ORDERED: MIRT7.5T8 PO (21:43)
[2020-09-17] MEDS ORDERED: NYST15PO9 TP (21:44)
[2020-09-17] MEDS ORDERED: OLAN5TAB99 PO (21:46)
[2020-09-17] MEDS ORDERED: SERT-268 PO (21:47)
[2020-09-17] MEDS ORDERED: TRAZ-120 PO (21:48)
[2020-09-17] MEDS ORDERED: LACT1CAP19 PO (21:52)
--- NOTE | 2020-09-17 21:59 | PN ---
DATE: 09/17/2020 SUBJECTIVE: The patient was seen today, met with the staff, chart reviewed and also covering for Dr. David. Staff reports that she is pleasantly confused, also restless in the night. Otherwise, no major behavior problems. OBSERVATION: VITAL SIGNS: Temperature 96.4, blood pressure 166/89, pulse 63, respirations 20, O2 sat 94%. GENERAL: Slept about 5 hours last night. The patient's appetite is fair. The patient is not having any side effects to medications. The patient is not having any physical complaints. MEDICATIONS: The patient's current medications include Zoloft 75 mg daily, trazodone 50 mg at night p.r.n., melatonin 3 mg at night, Seroquel 100 mg at night and also mirtazapine 7.5 mg at night. ASSESSMENT: 1. Major neurocognitive disorder, most likely vascular, with depression and behavioral disturbances. 2. Anxiety disorder, unspecified. PLAN: Continue with the treatment. LENGTH OF STAY: 7 days. MICHAEL IRVIN MD DR: KAYA/tulio JOB#: [id number] / [id number]
[2020-09-18] MEDS: traZODone 50 MG TABLET. PO PRN (00:40)
--- NOTE | 2020-09-18 02:58 | NUR ---
Last evening Niya visited with peers and has been cooperative. After going to bed and sleeping awhile she awoke and was given PRN meds x2 and is now back to sleep. Meds were given crushed in pudding because she chews pills when given whole.
[2020-09-18 06:12] VITALS: BP 171/92
[2020-09-18] MEDS: DOCUSATE SODIUM 100 MG CAPSULE PO SCH (07:47)
[2020-09-18] MEDS: LACTOBACILLUS RHAMNOSUS GG 1 CAPSULE. PO SCH (07:47)
[2020-09-18] MEDS: SERTRALINE 50 MG TABLET. PO SCH (07:47)
[2020-09-18] MEDS: NYSTATIN TOPICAL POWDER 15GM BOTTLE. TP SCH (09:00)
[2020-09-18] MEDS: AMMONIUM LACTATE 12% TOPICAL LOTION 226GM BOTTLE. TP SCH (09:00)
--- NOTE | 2020-09-18 11:48 | NUR ---
Pt is expected to d/c sometime today She is A&O to self only; quiet, confused, and very withdrawn verbally. She is often seen but not heard. Her interactions with patients and staff have been appropriate thus far. She is complaint with her medications and was able to take them whole with verbal encouragement. She denies pain when asked. Plan of care continues, preparing for d/c.
--- NOTE | 2020-09-18 13:51 | NUR ---
Transition Record was faxed to follow-up provider with the following elements: Reason for admission, procedures, tests, principal diagnosis, pending studies, patient instructions, 06/01 contact information for unit, phone number to obtain pending test results, plan for follow-up care, physician follow-up, advanced directive information, and medication list with dose, duration and instructions. This information was included in the following documents: History and physical, lab results, study results, progress notes, social work planning form, DC instruction form, patient visit summary, and medication reconciliation form. Date & time record faxed: 09/17/20 and 09/18/20 Record faxed to: Dr Kelvin Gandara Dr James Day Record discussed with/ report given to: Daughter Cristal
--- NOTE | 2020-09-18 16:17 | DS ---
DATE OF DISCHARGE: 09/18/2020 FINAL DIAGNOSES: AXIS I: 1. Major neurocognitive disorder, Alzheimer's, vascular with delusions, depression and behavioral disturbances. 2. Anxiety disorder, unspecified. 3. Impulse control disorder, unspecified. AXIS II: None. AXIS III: History of cerebrovascular accident, ulcer on left ankle, and hyperlipidemia. REASON FOR ADMISSION: This 85-year-old female with a history of dementia, [facility] the [facility] because of suicidal statements, mostly vague, but no specific plans. She was not sleeping, also having auditory hallucinations and also talking to spouse. The patient initially thought that TV was talking about her and becoming increasingly agitated and confused. The patient also was at elopement risk. CHIEF COMPLAINT: The patient is not able to communicate, confused, pacing constantly, and going into other residents' rooms. The patient has been diagnosed with dementia, most likely Alzheimer's and vascular type. The patient, since she [facility] at the [facility], is getting more paranoid and also psychotic. She is also getting agitated easily, not able to sleep. with appetite changes and also difficult to redirect. HOSPITAL COURSE: The patient had a physical exam, routine lab work, and also seen by the primary care. The patient's labs were within normal range except for sodium level of 146, BUN was 23. Also, abnormal lipid profile. The patient was involved in the program including individual therapy, group therapy, and activity therapy. The patient's medications include Zoloft 75 mg daily, mirtazapine 7.5 mg at night and trazodone 50 mg at night p.r.n. The patient was also on olanzapine 2.5 mg q. 2 hours p.r.n. The patient was on melatonin 3 mg at night, Seroquel 100 mg at night. The patient did not have any side effects. The patient did not have any falls. The patient gradually improved, still confused, but not exhibiting any psychotic symptoms and also not expressing any suicidal or homicidal thoughts. AFTERCARE PLAN: The patient will be returning home with her recommendation that she continue with the above medication listed and also to continue to see a psychiatrist. The patient, at the time of discharge, was not expressing any suicidal or homicidal thoughts. Her condition improved and she was medically stable. MICHAEL IRVIN MD DR: KAYA/tulio JOB#: [id number] / [id number]
== END 2020-09-18 13:53 | disposition home or self-care (01) | DRG 57 ==
LOC: GEROPSY 14:55
PROVIDERS: ADMIT Psychiatry & Neurology Psychiatry; ATTEND Psychiatry & Neurology Psychiatry
DX: G30.9 Alzheimer's disease, unspecified (principal); F01.51 Vascular dementia, unspecified severity, with behavioral disturbance; F02.81 Dementia in other diseases classified elsewhere, unspecified severity, with behavioral disturbance; F63.9 Impulse disorder, unspecified; E78.5 Hyperlipidemia, unspecified; F32.9 Major depressive disorder, single episode, unspecified; F41.9 Anxiety disorder, unspecified; Z66 Do not resuscitate; Z79.899 Other long term (current) drug therapy; Z86.73 Personal history of transient ischemic attack (TIA), and cerebral infarction without residual deficits; Z20.822 Contact with and (suspected) exposure to COVID-19; Z88.8 Allergy status to other drugs, medicaments and biological substances
CPT/HCPCS: 36415; 80053; 80061; 85025; Q0163; U0003; U0005